=== PATIENT | male | born 1955 | race Caucasian/White ===

== ENCOUNTER 2017-02-28 22:18 | Inpatient (IN) | payer MEDICARE, OTHER ==
[~2017-02-28] VITALS: Ht 172.7 cm; Wt 61.7 kg
--- NOTE | 2017-02-28 22:30 | NUR ---
PT ROMMEL FROM [facility] FOR PACING AND TALKING TO SELF MORE THAN USUAL PT HAS NO COMPLAINTS AT THIS TIME. PATING ASSISTED TO ER BED VIA EMS. PT GOWNED, PLACED ON QA MANAGER. AWAITING ORDERS FROM PROVIDER
[2017-02-28 22:40] LABS: BASOPHILS # (AUTO) 0.1 /CMM (0.0-0.2); BASOPHILS % (AUTO) 0.8 % (0.0-2.0); EOSINOPHILS # (AUTO) 0.2 /CMM (0.0-0.7); EOSINOPHILS % (AUTO) 2.7 % (0.0-6.0); HEMATOCRIT 37 % (39-51); HEMOGLOBIN 12.3 g/dL (13.5-17.5); LYMPHOCYTES # (AUTO) 2.8 /CMM (0.8-4.8); LYMPHOCYTES % (AUTO) 32.5 % (20.0-44.0); MEAN CORPUSCULAR HEMOGLOBIN 30 PG (26.0-33.0); MEAN CORPUSCULAR HGB CONC 33 g/dl (31.0-36.0); MEAN CORPUSCULAR VOLUME 91 fL (80-96); MONOCYTES # (AUTO) 0.6 /CMM (0.1-1.30); MONOCYTES % (AUTO) 6.9 % (2.0-12.0); NEUTROPHILS % (AUTO) 57.1 % (43.0-81.0); PLATELET COUNT (AUTO) 209 /CMM (150-450); RDW COEFFICIENT OF VARIATION 13.8 (11.5-15.0); RED BLOOD CELL COUNT(AUTO) 4.08 MIL/uL (4.5-6.0); WHITE BLOOD COUNT (AUTO) 8.8 K/uL (4.3-11.0)
[2017-02-28 23:05] LABS: ACETAMINOPHEN 0 ug/ml (10-30); ALANINE AMINOTRANSFERASE 23 U/L (12-78); ALBUMIN 3.2 g/dL (3.4-5.0); ALCOHOL, BLOOD < 3 mg/dL (0-0); ALKALINE PHOSPHATASE 74 U/L (46-116); ASPARTATE AMINOTRANSFERASE 15 U/L (15-37); BILIRUBIN,DIRECT 0.1 mg/dL (0.0-0.2); BILIRUBIN,TOTAL 0.2 mg/dL (0.2-1.0); CALCIUM, SERUM 8.5 mg/dL (8.5-10.1); CARBON DIOXIDE 26 mmol/L (21-32); CHLORIDE 102 mmol/L (98-107); GLUCOSE 171 mg/dL (74-106); POTASSIUM 4.1 mmol/L (3.5-5.1); SALICYLATE 3.8 mg/dL (2.8-20.0); SODIUM SERUM 136 mmol/L (136-145); TOTAL PROTEIN, SERUM 6.5 g/dL (6.4-8.2); UREA NITROGEN, BLOOD 17 mg/dL (7-18)
--- NOTE | 2017-03-01 00:01 | NUR ---
PATIENT IS RESTING IN ER BED, NAD NOTED, SKIN WARM AND DRY, WILL CONTINUE TO MONITOR
--- NOTE | 2017-03-01 01:15 | NUR ---
RN NOTE PET TEAM IN ROOM FOR PSYCH EVAL.
--- NOTE | 2017-03-01 02:59 | NUR ---
212.A OLGA LIDIA BED
[2017-03-01] MEDS ORDERED: METF10002 PO (03:58)
[2017-03-01] MEDS ORDERED: TROS20TA3 PO (03:58)
[2017-03-01] MEDS ORDERED: OMEG1CAP55 PO (03:58)
[2017-03-01] MEDS ORDERED: METO25TA6 PO (03:58)
[2017-03-01] MEDS ORDERED: OLAN5TAB3 PO (03:58)
[2017-03-01] MEDS ORDERED: ACET-2030 PO (03:58)
[2017-03-01] MEDS ORDERED: CHOL1CRY2 PO (03:58)
[2017-03-01] MEDS ORDERED: MULT-1119 PO (03:58)
[2017-03-01] MEDS ORDERED: MULT1CAP34 PO (03:58)
[2017-03-01] MEDS ORDERED: FAMO20TA8 PO (03:58)
[2017-03-01] MEDS ORDERED: MAGNESIUM HYDROXIDE 30 ML UDC PO PRN (04:00)
[2017-03-01] MEDS ORDERED: MAG HYDROX/AL HYDROX/SIMETH 30 ML UDC PO PRN (04:00)
[2017-03-01] MEDS ORDERED: ACETAMINOPHEN 325 MG TABLET PO PRN (04:00)
--- NOTE | 2017-03-01 04:34 | NUR ---
GPS/RN NOTE: ADMITTED FROM [facility] ER, INITIALLY CAME FROM [facility], CAME TO THE UNIT AROUND 0315. PATIENT ADMITTED ON 5150 FOR GD. UPON FACE TO FACE PATIENT WAS PACING, TALKING TO SELF, AGITATED, NON-COMPLIANT WITH CARE, UNABLE TO PROVIDE CARE DUE TO MENTAL STATUS. PATIENT AWAKE, ALERT, ORIENTED X3. SKIN ASSESSMENT DONE, SKIN INTACT. RESPIRATION EVEN, BREATHING PATTERN NON-LABORED, NO APPARENT DISTRESS NOTED. BELONGINGS INVENTORIED AND CHECKED FOR CONTRABAND. VALUABLES PUT IN TO SAFE. PATIENT IS UNDER THE PSYCHIATRIC CARE OF DR. DELACRUZ AND UNDER THE MEDICAL CARE OF DR. STANLEY. NEED TO FOLLOW-UP WITH MED RECON. MRSA SCREEN TO BE DONE. BED LOCKED AND PLACED ON LOWEST POSITION. WILL CONTINUE TO MONITOR Q 15 MINS. TO MAINTAIN SAFETY. FAMILY WILL BE NOTIFIED IN AM.
--- NOTE | 2017-03-01 06:18 | NUR ---
GPS/RN NOTE: ASKED PATIENT WHOSE FAMILY MEMBER NEEDS TO BE NOTIFIED ABOUT HIS ADMISSION TO THE UNIT/SOH. PATIENT STATED THAT HE HAS NO ONE. CHECKED MED. RECORD, NOTHING RECORDED OR GIVEN.
--- NOTE | 2017-03-01 06:20 | NUR ---
GPS/RN NOTE: MRSA SCREEN DONE.
[2017-03-01] MEDS ORDERED: CLON0.5T4 PO (06:37)
[2017-03-01] MEDS ORDERED: FINA5TAB11 PO (06:37)
[2017-03-01] MEDS ORDERED: DIVA500T2 PO (06:37)
[2017-03-01] MEDS ORDERED: BENZ0.5T3 PO (06:37)
[2017-03-01] MEDS ORDERED: INSU3INS6 SUBCUT (06:37)
[2017-03-01] MEDS ORDERED: ATOR10TA PO (06:37)
[2017-03-01] MEDS ORDERED: INSU100I14 SQ ×2 (06:37)
--- NOTE | 2017-03-01 06:47 | NUR ---
GPS/RN NOTE: PAGED DR. STANLEY ABOUT MED RECON @ 8348. WAITING CALL BACK.
[2017-03-01 08:00] VITALS: BP 123/73
[2017-03-01] MEDS ORDERED: CHOL100044 PO (08:15)
--- NOTE | 2017-03-01 12:21 | NUR ---
GPS/RN DR PAYTON MADE AWARE VIA [employer] EXCHANGE OF ACCUCHECK WITH WC=686. NEW ORDERS RECEIVED AND CARRIED OUT.
[2017-03-01] MEDS ORDERED: DEXTROSE 50%-WATER 50 ML DISP.SYRIN IV PRN (12:30)
[2017-03-01] MEDS: INSULIN REGULAR, HUMAN 100 UNIT/ML 3 ML VIAL SQ PRN ×2 (12:48→22:43)
[2017-03-01] MEDS: BLOOD SUGAR DIAGNOSTIC 1 EACH STRIP IN SCH ×3 (12:52→22:31)
[2017-03-01] MEDS: OLANZAPINE 5 MG/TAB.RAPDIS PO SCH ×2 (12:54→22:30)
[2017-03-01] MEDS: DIVALPROEX SODIUM 125 MG CAP.SPRINK PO SCH ×2 (12:54→22:30)
[2017-03-01 16:00] VITALS: BP 126/66
[2017-03-01] MEDS ORDERED: Medication Not On Formulary EA (Omega-3 Acid Ethyl Esters (Lovaza) 1 GM) PO SCH (17:00)
[2017-03-01] MEDS: INSULIN ASPART HUMALOG/NOVOLOG 100 UNIT/ML CARTRIDGE SQ SCH (17:51)
[2017-03-01] MEDS: METFORMIN 500 MG TABLET PO SCH (17:53)
[2017-03-01] MEDS: BENZTROPINE MESYLATE (1 MG) 1 MG TABLET PO SCH (17:53)
[2017-03-01] MEDS: METOPROLOL TARTRATE 25 MG TABLET PO SCH (17:54)
[2017-03-01] MEDS: FAMOTIDINE (20 MG) 20 MG TABLET PO SCH (17:55)
[2017-03-01 20:00] VITALS: BP 137/80
--- NOTE | 2017-03-01 21:25 | NUR ---
RN NOTES PATIENT COMPLIANT WITH MEDICATION, ACCUCHECK AND INSULIN ADMINISTRATION. OBEYS SIMPLE COMMAND.
[2017-03-01] MEDS ORDERED: INSULIN DETEMIR 100 UNIT/ML CARTRIDGE SQ SCH (22:00)
[2017-03-01] MEDS: ATORVASTATIN 10 MG TABLET PO SCH (22:31)
[2017-03-02 06:35] LABS: BASOPHILS # (AUTO) 0.1 /CMM (0.0-0.2); BASOPHILS % (AUTO) 0.7 % (0.0-2.0); EOSINOPHILS # (AUTO) 0.2 /CMM (0.0-0.7); HEMATOCRIT 41 % (39-51); HEMOGLOBIN 13.6 g/dL (13.5-17.5); LYMPHOCYTES # (AUTO) 3.2 /CMM (0.8-4.8); LYMPHOCYTES % (AUTO) 35.3 % (20.0-44.0); MEAN CORPUSCULAR HEMOGLOBIN 31 PG (26.0-33.0); MEAN CORPUSCULAR HGB CONC 34 g/dl (31.0-36.0); MEAN CORPUSCULAR VOLUME 91 fL (80-96); MONOCYTES # (AUTO) 0.8 /CMM (0.1-1.30); MONOCYTES % (AUTO) 9.3 % (2.0-12.0); NEUTROPHILS # (AUTO) 4.7 /CMM (1.8-8.9); NEUTROPHILS % (AUTO) 52.7 % (43.0-81.0); PLATELET COUNT (AUTO) 245 /CMM (150-450); RDW COEFFICIENT OF VARIATION 13.9 (11.5-15.0); RED BLOOD CELL COUNT(AUTO) 4.47 MIL/uL (4.5-6.0)
[2017-03-02 06:43] LABS: ALBUMIN 3.3 g/dL (3.4-5.0); BILIRUBIN,TOTAL 0.3 mg/dL (0.2-1.0); CALCIUM, SERUM 8.7 mg/dL (8.5-10.1); CREATININE 0.6 mg/dL (0.6-1.3); POTASSIUM 4.1 mmol/L (3.5-5.1); TOTAL PROTEIN, SERUM 6.8 g/dL (6.4-8.2)
[2017-03-02 06:47] LABS: THYROID STIMULATING HORMONE 0.344 uIU/mL (0.358-3.74)
--- NOTE | 2017-03-02 06:55 | NUR ---
RN NOTES CHECKED BG THIS 614, BG 34 MG/DL, PATIENT IS ALERT AND AWAKE, NO DIAPHORESIS, GIVEN 16 OZ ORANGE JUICE, RECHECKED AFTER 30 MINUTES, BG 130 MG/DL, WILL ENDORSE TO AM SHIFT TO MONITOR BLOOD SUGAR
[2017-03-02 07:52] VITALS: BP 117/59
[2017-03-02] MEDS: BLOOD SUGAR DIAGNOSTIC 1 EACH STRIP IN SCH ×4 (08:57→21:10)
[2017-03-02] MEDS: INSULIN ASPART HUMALOG/NOVOLOG 100 UNIT/ML CARTRIDGE SQ SCH ×2 (08:58→12:00)
[2017-03-02] MEDS: METFORMIN 500 MG TABLET PO SCH (09:00)
[2017-03-02] MEDS: DIVALPROEX SODIUM 125 MG CAP.SPRINK PO SCH ×2 (09:00→21:08)
[2017-03-02] MEDS: MULTIVIT, IRON, MIN NO. 8, FA 1 TAB PO SCH (09:00)
[2017-03-02] MEDS: OLANZAPINE 5 MG/TAB.RAPDIS PO SCH ×2 (09:00→21:09)
[2017-03-02] MEDS: METOPROLOL TARTRATE 25 MG TABLET PO SCH ×2 (09:01→17:03)
[2017-03-02] MEDS: FAMOTIDINE (20 MG) 20 MG TABLET PO SCH ×2 (09:01→17:02)
[2017-03-02] MEDS: FINASTERIDE (5 MG) 5 MG TABLET PO SCH (09:02)
[2017-03-02] MEDS: CHOLECALCIFEROL 1,000 UNIT TABLET (VIT D3) PO SCH (09:02)
[2017-03-02] MEDS: BENZTROPINE MESYLATE (1 MG) 1 MG TABLET PO SCH ×2 (09:02→17:01)
--- NOTE | 2017-03-02 12:11 | NUR ---
RN NOTES PT'S 1200 BS WAS 20. TWO CUPS OF ORANGE JUICE WAS GIVEN MIXED WITH 4 BAGS OF SUGAR. PT REMAINS A/0 X3. DENIES ANY DIZZINESS, SKIN IS WARM AND DRY, STATES THAT HE IS A LITTLE. COLD. WILL STAY WITH PT AND CHECK THE BLOOD SUGAR IN 15MIN.
--- NOTE | 2017-03-02 12:29 | NUR ---
RN NOTES PT'S BLOOD SUGAR WAS RECHECKED AND IS NOW 73 AFTER INTERVENTIONS. PT'S MENTATION REMAINS AT BASELINE. EXHIBITS NO EXCESSIVE SWEATING, NO FAINTING SPELLS, LIGHTHEADEDNESS, AND MINOR SHAKING. WILL CONTINUE TO CLOSELY MONITOR.
[2017-03-02 15:34] VITALS: BP 119/65
--- NOTE | 2017-03-02 15:37 | NUR ---
RN NOTES DR. PAYTON PAGED THROUGH [employer] IN REGARDS TO BLOOD SUGAR MEDICATIONS. AWAITING CALL BACK
--- NOTE | 2017-03-02 15:43 | NUR ---
RN NOTES CALL RECEIVED FROM DR. PAYTON. PER , "DISCONTINUE ALL BLOOD SUGAR MEDICATIONS WITH THE EXCEPTION OF HIS ACCU CHECKS AND MILD SLIDING SCALE". WILL CARRY OUT ORDERS
[2017-03-02] MEDS: INSULIN REGULAR, HUMAN 100 UNIT/ML 3 ML VIAL SQ PRN ×2 (17:07→21:14)
[2017-03-02 19:47] VITALS: BP 123/70
[2017-03-02] MEDS: LORAZEPAM 0.5 MG TABLET PO PRN (21:08)
[2017-03-02] MEDS: ATORVASTATIN 10 MG TABLET PO SCH (21:09)
[2017-03-02] MEDS: INSULIN DETEMIR 100 UNIT/ML CARTRIDGE SQ SCH (21:16)
--- NOTE | 2017-03-03 07:20 | NUR ---
GPS RN NOTE: BS CHECKED 428 MG/DL 10 UNITS INSULIN GIVEN PER ORDER DR PAYTON NOTIFIED WITH NEW ORDERS CHANGE TO MODERATE SLIDING SCALES ,LEVEMIR 5 UNITS SQ ONCE. ORDER PLACED AND CARED OUT WILL CONTINUE MONITORING FOR SAFETY AND BEHAVIOR Q 15 MIN
[2017-03-03] MEDS: BLOOD SUGAR DIAGNOSTIC 1 EACH STRIP IN SCH (07:35)
[2017-03-03] MEDS: INSULIN REGULAR, HUMAN 100 UNIT/ML 3 ML VIAL SQ PRN ×2 (07:37→12:29)
[2017-03-03 08:00] VITALS: BP 120/65
[2017-03-03] MEDS ORDERED: INSULIN DETEMIR 100 UNIT/ML CARTRIDGE SQ STA (08:08)
[2017-03-03] MEDS ORDERED: DEXTROSE 50%-WATER 50 ML DISP.SYRIN IV PRN (08:30)
[2017-03-03] MEDS: FAMOTIDINE (20 MG) 20 MG TABLET PO SCH ×2 (08:31→16:29)
[2017-03-03] MEDS: MULTIVIT, IRON, MIN NO. 8, FA 1 TAB PO SCH (08:31)
[2017-03-03] MEDS: DIVALPROEX SODIUM 125 MG CAP.SPRINK PO SCH ×2 (08:31→21:23)
[2017-03-03] MEDS: OLANZAPINE 5 MG/TAB.RAPDIS PO SCH ×2 (08:31→21:25)
[2017-03-03] MEDS: FINASTERIDE (5 MG) 5 MG TABLET PO SCH (08:31)
[2017-03-03] MEDS: CHOLECALCIFEROL 1,000 UNIT TABLET (VIT D3) PO SCH (08:31)
[2017-03-03] MEDS: BENZTROPINE MESYLATE (1 MG) 1 MG TABLET PO SCH ×2 (08:31→16:29)
[2017-03-03] MEDS: METOPROLOL TARTRATE 25 MG TABLET PO SCH ×2 (08:32→16:30)
[2017-03-03] MEDS: LORAZEPAM 0.5 MG TABLET PO PRN (10:02)
--- NOTE | 2017-03-03 10:04 | NUR ---
GPS RN NOTE: PT IN THE ROOM ANXIOUS PACING RESTLESS ATIVAN 0.5 MG PO PRN GIVEN PER ORDER WILL CONTINUE MONITORING
--- NOTE | 2017-03-03 12:08 | NUR ---
GPS RN NOTE: DR PAYTON NOTIFIED PT BS 435 MG/DL 15 UNITS GIVEN NO NEW ORDERS AT THIS TIME
[2017-03-03] MEDS: BLOOD SUGAR DIAGNOSTIC 1 EACH STRIP VI SCH ×3 (12:28→21:36)
[2017-03-03 15:32] VITALS: BP 108/64
[2017-03-03 19:39] VITALS: BP 106/65
[2017-03-03] MEDS: ATORVASTATIN 10 MG TABLET PO SCH (21:24)
[2017-03-03] MEDS: *INSULIN REGULAR(HUMULIN R)HUM 100 UNIT/ML VIAL SQ PRN (21:34)
[2017-03-03] MEDS: INSULIN DETEMIR 100 UNIT/ML CARTRIDGE SQ SCH (21:35)
[2017-03-04] MEDS: BLOOD SUGAR DIAGNOSTIC 1 EACH STRIP VI SCH ×4 (07:30→21:13)
[2017-03-04 08:16] VITALS: BP 101/59
[2017-03-04] MEDS: DIVALPROEX SODIUM 125 MG CAP.SPRINK PO SCH ×2 (08:46→21:13)
[2017-03-04] MEDS: MULTIVIT, IRON, MIN NO. 8, FA 1 TAB PO SCH (08:47)
[2017-03-04] MEDS: METOPROLOL TARTRATE 25 MG TABLET PO SCH ×2 (08:47→17:18)
[2017-03-04] MEDS: FINASTERIDE (5 MG) 5 MG TABLET PO SCH (08:47)
[2017-03-04] MEDS: FAMOTIDINE (20 MG) 20 MG TABLET PO SCH ×2 (08:47→17:18)
[2017-03-04] MEDS: CHOLECALCIFEROL 1,000 UNIT TABLET (VIT D3) PO SCH (08:48)
[2017-03-04] MEDS: OLANZAPINE 5 MG/TAB.RAPDIS PO SCH ×2 (08:49→21:13)
[2017-03-04] MEDS: NICOTINE PATCH (21MG) 21 MG PATCH.TD24 TD SCH (08:49)
[2017-03-04] MEDS: LORAZEPAM 0.5 MG TABLET PO PRN ×2 (08:49→23:48)
[2017-03-04] MEDS: BENZTROPINE MESYLATE (1 MG) 1 MG TABLET PO SCH ×2 (08:59→17:17)
[2017-03-04] MEDS: INSULIN REGULAR, HUMAN 100 UNIT/ML 3 ML VIAL SQ PRN ×3 (08:59→17:19)
--- NOTE | 2017-03-04 09:19 | NUR ---
RN NOTE:PATIENT AGITATED AND MEDICATED WITH ATIVAN 0.5MG.
--- NOTE | 2017-03-04 09:57 | NUR ---
Initial Discharge Note: Pt resides at [facility] [address] [place] [address] / [phone]. Per Shabbir (greeter guest services) from [facility] (Shabbir confirmed with director of neurology), pt. is able to return there when ready for discharge. Pt has no known contacts, SW will attempt to obtain contact info later on. SW to help form safe and proper discharge plan.
[2017-03-04 15:57] VITALS: BP 139/65
[2017-03-04 20:20] VITALS: BP 105/60
[2017-03-04] MEDS: ATORVASTATIN 10 MG TABLET PO SCH (21:13)
[2017-03-04] MEDS: INSULIN DETEMIR 100 UNIT/ML CARTRIDGE SQ SCH (21:16)
[2017-03-04] MEDS: *INSULIN REGULAR(HUMULIN R)HUM 100 UNIT/ML VIAL SQ PRN (21:16)
[2017-03-05] MEDS: BLOOD SUGAR DIAGNOSTIC 1 EACH STRIP VI SCH ×4 (07:30→21:23)
[2017-03-05 08:13] VITALS: BP 121/71
[2017-03-05] MEDS: BENZTROPINE MESYLATE (1 MG) 1 MG TABLET PO SCH ×2 (08:43→16:13)
[2017-03-05] MEDS: DIVALPROEX SODIUM 125 MG CAP.SPRINK PO SCH ×2 (08:44→21:20)
[2017-03-05] MEDS: METOPROLOL TARTRATE 25 MG TABLET PO SCH ×2 (08:45→16:18)
[2017-03-05] MEDS: FINASTERIDE (5 MG) 5 MG TABLET PO SCH (08:46)
[2017-03-05] MEDS: MULTIVIT, IRON, MIN NO. 8, FA 1 TAB PO SCH (08:46)
[2017-03-05] MEDS: FAMOTIDINE (20 MG) 20 MG TABLET PO SCH ×2 (08:46→16:18)
[2017-03-05] MEDS: CHOLECALCIFEROL 1,000 UNIT TABLET (VIT D3) PO SCH (08:47)
[2017-03-05] MEDS: OLANZAPINE 5 MG/TAB.RAPDIS PO SCH ×2 (08:47→21:20)
[2017-03-05] MEDS: NICOTINE PATCH (21MG) 21 MG PATCH.TD24 TD SCH (09:00)
[2017-03-05] MEDS: LORAZEPAM 0.5 MG TABLET PO PRN ×2 (10:32→21:20)
--- NOTE | 2017-03-05 10:33 | NUR ---
RN NOTE:PATIENT AGITATED AND MEDICATED WITH ATIVAN 0.5MG.
[2017-03-05] MEDS: INSULIN REGULAR, HUMAN 100 UNIT/ML 3 ML VIAL SQ PRN ×2 (13:15→17:30)
[2017-03-05 16:00] VITALS: BP 115/64
--- NOTE | 2017-03-05 18:29 | NUR ---
Checked patient blood sugar level 458mg/dl, given 15units of Humulin R as ordered. Left a voicemail message to Dr. Ma. Awaiting call from .
[2017-03-05 19:59] VITALS: BP 117/60
[2017-03-05] MEDS: ATORVASTATIN 10 MG TABLET PO SCH (21:22)
[2017-03-05] MEDS: INSULIN DETEMIR 100 UNIT/ML CARTRIDGE SQ SCH (21:23)
--- NOTE | 2017-03-05 21:53 | NUR ---
RN NOTES PT BS= 77 MG/DL LEVEMIR 10 UNITS HELD. ORANGE JUICE GIVEN. NO S/S OF HYPOGLYCEMIA. WILL CONTINUE TO MONITOR.
[2017-03-06] MEDS: BLOOD SUGAR DIAGNOSTIC 1 EACH STRIP VI SCH (07:38)
[2017-03-06] MEDS: INSULIN REGULAR, HUMAN 100 UNIT/ML 3 ML VIAL SQ PRN ×3 (07:40→12:33)
--- NOTE | 2017-03-06 07:45 | NUR ---
GPS/RN BS 505, RECHECKED 556, TIFFANY COPELAND NOTIFIED, ADMINISTERED 15 UNITS REGULAR INSULIN ORDERED. NO NEW ORDERS AT THIS TIME. PATIENT IS ASYMPTOMATIC, WILL CONTINUE TO MONITOR.
[2017-03-06 08:51] VITALS: BP 112/67
--- NOTE | 2017-03-06 09:10 | NUR ---
GPS/RN BS 559, RECHECKED, BS 555, CYBER SOFTWARE ENGINEER DINORAH NOTIFIED, NEW ORDER TO ADMINISTER 20 UNITS REGULAR INSULIN, ADMINISTERED ORDERED. NEW ORDER BMP, LACTIC ACID, INPUTTED IN SYSTEM, PATIENT IS IN STABLE CONDITION AND ASYMPTOMATIC, WILL CONTINUE TO MONITOR.
[2017-03-06] MEDS: FAMOTIDINE (20 MG) 20 MG TABLET PO SCH ×2 (09:12→16:29)
[2017-03-06] MEDS: CHOLECALCIFEROL 1,000 UNIT TABLET (VIT D3) PO SCH (09:12)
[2017-03-06] MEDS: BENZTROPINE MESYLATE (1 MG) 1 MG TABLET PO SCH ×2 (09:12→16:28)
[2017-03-06] MEDS: FINASTERIDE (5 MG) 5 MG TABLET PO SCH (09:12)
[2017-03-06] MEDS: OLANZAPINE 5 MG/TAB.RAPDIS PO SCH ×2 (09:12→21:40)
[2017-03-06] MEDS: DIVALPROEX SODIUM 125 MG CAP.SPRINK PO SCH ×2 (09:12→21:40)
[2017-03-06] MEDS: METOPROLOL TARTRATE 25 MG TABLET PO SCH ×2 (09:13→16:29)
[2017-03-06] MEDS: MULTIVIT, IRON, MIN NO. 8, FA 1 TAB PO SCH (09:16)
[2017-03-06] MEDS: NICOTINE PATCH (21MG) 21 MG PATCH.TD24 TD SCH (09:16)
--- NOTE | 2017-03-06 10:20 | NUR ---
GPS/RN BS RECHECKED 440, ANCILLARY SERVICES MANAGER THERAPY DINORAH NOTIFIED, NO NEW ORDERS AT THIS TIME. PATIENT IS ASYMPTOMATIC, WILL CONTINUE TO MONITOR.
--- NOTE | 2017-03-06 10:30 | NUR ---
GPS/RN TIFFANY COPELAND NOTIFIED OF LACTIC ACID 2.1 GLUCOSE 453, NO NEW ORDERS.
[2017-03-06 10:33] LABS: CARBON DIOXIDE 27 mmol/L (21-32); CHLORIDE 101 mmol/L (98-107); CREATININE 1.2 mg/dL (0.6-1.3); POTASSIUM 4.7 mmol/L (3.5-5.1); SODIUM SERUM 136 mmol/L (136-145); UREA NITROGEN, BLOOD 29 mg/dL (7-18)
[2017-03-06 10:36] LABS: GLUCOSE 453 mg/dL (74-106)
[2017-03-06 11:57] LABS: BILIRUBIN,DIRECT 0.1 mg/dL (0.0-0.2); BILIRUBIN,TOTAL 0.4 mg/dL (0.2-1.0)
[2017-03-06] MEDS ORDERED: DEXTROSE 50%-WATER 50 ML DISP.SYRIN IV PRN (12:00)
[2017-03-06] MEDS: BLOOD SUGAR DIAGNOSTIC 1 EACH STRIP IN SCH ×3 (12:15→21:40)
--- NOTE | 2017-03-06 12:30 | NUR ---
GPS/RN TIFFANY COPELAND NOTIFIED OF LACTIC ACID 2.6 AND BS 267. ADMINISTERED 12 UNITS OF REGULAR INSULIN PER SLIDING SCALE, NO NEW ORDERS AT THIS TIME. WILL CONTINUE TO MONITOR.
[2017-03-06 16:24] VITALS: BP 119/78
--- NOTE | 2017-03-06 17:12 | NUR ---
GPS/RN BS 27, GAVE ORANGE JUICE, WILL RECHECK BS VALUES, TIFFANY COPELAND NOTIFIED OF RESULTS, AWAITING CALL BACK.
--- NOTE | 2017-03-06 17:31 | NUR ---
GPS/RN TIFFANY AMEZQUITA IS AWARE OF BS OF 27 AND THAT OJ WAS GIVEN TO PATIENT, NO NEW ORDERS AT THIS TIME.
--- NOTE | 2017-03-06 18:02 | NUR ---
GPS/RN BS VALUES RECHECKED, BS 170, EMBALMER APPRENTICE BIA NOTIFIED, PATIENT IS ALERT, STABLE CONDITION, AWAITING CALL BACK. WILL CONTINUE TO MONITOR.
--- NOTE | 2017-03-06 19:00 | NUR ---
GPS/RN TIFFANY AMEZQUITA IS AWARE OF BS OF 170, NO NEW ORDERS AT THIS TIME.
[2017-03-06] MEDS: ATORVASTATIN 10 MG TABLET PO SCH (21:40)
--- NOTE | 2017-03-06 21:40 | NUR ---
GPS/RN PT'S BS 414 MG/DL, PT IS ASYMPTOMATIC, ADMINISTERED 10 UNITS REGULAR INSULIN ORDERED. ORDERED GLUCOSE RANDOM STAT. WILL CONTINUE TO MONITOR.
[2017-03-06] MEDS: *INSULIN REGULAR(HUMULIN R)HUM 100 UNIT/ML VIAL SQ PRN (21:41)
[2017-03-06] MEDS: TEMAZEPAM 7.5 MG CAPSULE PO PRN (21:42)
--- NOTE | 2017-03-07 05:40 | NUR ---
GPS-RN PT'S BLOOD SUGAR 403 MG/DL. ORDERED GLUCOSE RANDOM STAT. PT IS ASYMPTOMATIC. WILL CONTINUE TO MONITOR.
[2017-03-07] MEDS: INSULIN REGULAR, HUMAN 100 UNIT/ML 3 ML VIAL SQ PRN ×2 (06:25→12:47)
--- NOTE | 2017-03-07 06:40 | NUR ---
PT'S GLUCOSE RANDOM RESULT 428. PT IS ASYMPTOMATIC. INSULIN 20 UNITS GIVEN ORDERED. WILL CONTINUE TO MONITOR.
[2017-03-07] MEDS: BLOOD SUGAR DIAGNOSTIC 1 EACH STRIP IN SCH ×4 (08:08→21:41)
[2017-03-07] MEDS: INSULIN DETEMIR 100 UNIT/ML CARTRIDGE SQ SCH (08:25)
[2017-03-07] MEDS: METOPROLOL TARTRATE 25 MG TABLET PO SCH ×2 (09:00→16:14)
[2017-03-07] MEDS: NICOTINE PATCH (21MG) 21 MG PATCH.TD24 TD SCH (09:00)
[2017-03-07] MEDS: FAMOTIDINE (20 MG) 20 MG TABLET PO SCH ×2 (09:03→16:14)
[2017-03-07] MEDS: FINASTERIDE (5 MG) 5 MG TABLET PO SCH (09:03)
[2017-03-07] MEDS: DIVALPROEX SODIUM 125 MG CAP.SPRINK PO SCH ×2 (09:03→21:40)
[2017-03-07] MEDS: CHOLECALCIFEROL 1,000 UNIT TABLET (VIT D3) PO SCH (09:03)
[2017-03-07] MEDS: MULTIVIT, IRON, MIN NO. 8, FA 1 TAB PO SCH (09:03)
[2017-03-07] MEDS: BENZTROPINE MESYLATE (1 MG) 1 MG TABLET PO SCH ×2 (09:03→16:14)
[2017-03-07] MEDS: OLANZAPINE 5 MG/TAB.RAPDIS PO SCH ×2 (09:04→21:41)
[2017-03-07 09:47] VITALS: BP 101/59
[2017-03-07 16:00] VITALS: BP 102/57
[2017-03-07 20:00] VITALS: BP 102/63
[2017-03-07] MEDS: ATORVASTATIN 10 MG TABLET PO SCH (21:41)
[2017-03-07] MEDS: TEMAZEPAM 7.5 MG CAPSULE PO PRN (21:41)
[2017-03-08 08:00] VITALS: BP 115/68
[2017-03-08] MEDS: BLOOD SUGAR DIAGNOSTIC 1 EACH STRIP IN SCH ×4 (08:12→21:41)
[2017-03-08] MEDS: INSULIN DETEMIR 100 UNIT/ML CARTRIDGE SQ SCH (08:33)
[2017-03-08] MEDS: INSULIN REGULAR, HUMAN 100 UNIT/ML 3 ML VIAL SQ PRN ×2 (08:36→12:20)
[2017-03-08] MEDS: CHOLECALCIFEROL 1,000 UNIT TABLET (VIT D3) PO SCH (08:37)
[2017-03-08] MEDS: NICOTINE PATCH (21MG) 21 MG PATCH.TD24 TD SCH (08:37)
[2017-03-08] MEDS: BENZTROPINE MESYLATE (1 MG) 1 MG TABLET PO SCH ×2 (08:37→18:18)
[2017-03-08] MEDS: MULTIVIT, IRON, MIN NO. 8, FA 1 TAB PO SCH (08:37)
[2017-03-08] MEDS: FINASTERIDE (5 MG) 5 MG TABLET PO SCH (08:37)
[2017-03-08] MEDS: DIVALPROEX SODIUM 125 MG CAP.SPRINK PO SCH ×2 (08:37→21:37)
[2017-03-08] MEDS: OLANZAPINE 5 MG/TAB.RAPDIS PO SCH ×2 (08:38→21:37)
[2017-03-08] MEDS: METOPROLOL TARTRATE 25 MG TABLET PO SCH ×2 (08:39→18:19)
[2017-03-08] MEDS: FAMOTIDINE (20 MG) 20 MG TABLET PO SCH ×2 (08:40→18:18)
[2017-03-08 16:00] VITALS: BP 114/71
--- NOTE | 2017-03-08 16:45 | NUR ---
GPS/RN ACCUCHECK WITH BS= 18. ORANGE JUICE WITH 3 SUGARS GIVEN PT IS AMBULATORY AND ASYMPTOMATIC
[2017-03-08] MEDS ORDERED: DIVALPROEX SODIUM 250 MG TABLET.DR PO SCH (17:00)
[2017-03-08 20:00] VITALS: BP 119/60
[2017-03-08] MEDS: ATORVASTATIN 10 MG TABLET PO SCH (21:37)
[2017-03-08] MEDS: LORAZEPAM 0.5 MG TABLET PO PRN (21:37)
[2017-03-08] MEDS: *INSULIN REGULAR(HUMULIN R)HUM 100 UNIT/ML VIAL SQ PRN (21:43)
[2017-03-09] MEDS ORDERED: INSULIN DETEMIR 100 UNIT/ML CARTRIDGE SQ SCH (07:00)
[2017-03-09 07:54] LABS: BASOPHILS % (AUTO) 0.2 % (0.0-2.0); EOSINOPHILS # (AUTO) 0.2 /CMM (0.0-0.7); EOSINOPHILS % (AUTO) 2.7 % (0.0-6.0); HEMATOCRIT 40 % (39-51); HEMOGLOBIN 13.3 g/dL (13.5-17.5); LYMPHOCYTES # (AUTO) 1.9 /CMM (0.8-4.8); LYMPHOCYTES % (AUTO) 22.9 % (20.0-44.0); MEAN CORPUSCULAR HEMOGLOBIN 31 PG (26.0-33.0); MEAN CORPUSCULAR HGB CONC 34 g/dl (31.0-36.0); MEAN CORPUSCULAR VOLUME 91 fL (80-96); MONOCYTES # (AUTO) 0.5 /CMM (0.1-1.30); MONOCYTES % (AUTO) 6.2 % (2.0-12.0); NEUTROPHILS # (AUTO) 5.6 /CMM (1.8-8.9); RDW COEFFICIENT OF VARIATION 14.3 (11.5-15.0); RED BLOOD CELL COUNT(AUTO) 4.33 MIL/uL (4.5-6.0); WHITE BLOOD COUNT (AUTO) 8.3 K/uL (4.3-11.0)
[2017-03-09 08:00] VITALS: BP 104/54
[2017-03-09 08:19] LABS: ALBUMIN 3.2 g/dL (3.4-5.0); BILIRUBIN,TOTAL 0.4 mg/dL (0.2-1.0); CALCIUM, SERUM 8.7 mg/dL (8.5-10.1); CREATININE 0.8 mg/dL (0.6-1.3); MAGNESIUM 2.1 mg/dL (1.8-2.4); POTASSIUM 4.6 mmol/L (3.5-5.1); TOTAL PROTEIN, SERUM 6.8 g/dL (6.4-8.2)
[2017-03-09] MEDS: METOPROLOL TARTRATE 25 MG TABLET PO SCH ×2 (09:00→16:46)
[2017-03-09] MEDS: INSULIN REGULAR, HUMAN 100 UNIT/ML 3 ML VIAL SQ PRN ×2 (09:04→12:40)
[2017-03-09] MEDS: BLOOD SUGAR DIAGNOSTIC 1 EACH STRIP IN SCH ×4 (09:07→21:19)
[2017-03-09] MEDS: MULTIVIT, IRON, MIN NO. 8, FA 1 TAB PO SCH (09:13)
[2017-03-09] MEDS: CHOLECALCIFEROL 1,000 UNIT TABLET (VIT D3) PO SCH (09:13)
[2017-03-09] MEDS: FAMOTIDINE (20 MG) 20 MG TABLET PO SCH ×2 (09:13→16:50)
[2017-03-09] MEDS: BENZTROPINE MESYLATE (1 MG) 1 MG TABLET PO SCH ×2 (09:13→16:50)
[2017-03-09] MEDS: FINASTERIDE (5 MG) 5 MG TABLET PO SCH (09:13)
[2017-03-09] MEDS: DIVALPROEX SODIUM 125 MG CAP.SPRINK PO SCH ×2 (09:14→21:18)
[2017-03-09] MEDS: NICOTINE PATCH (21MG) 21 MG PATCH.TD24 TD SCH (09:14)
[2017-03-09] MEDS: OLANZAPINE 5 MG/TAB.RAPDIS PO SCH ×2 (09:14→21:19)
[2017-03-09 09:32] LABS: PLATELET COUNT (AUTO) 217 /CMM (150-450)
[2017-03-09] MEDS ORDERED: OLANZAPINE 5 MG/TAB.RAPDIS PO ONE (13:30)
[2017-03-09 16:00] VITALS: BP 109/60
[2017-03-09] MEDS: DIVALPROEX SODIUM 125 MG TABLET.DR PO SCH (16:51)
--- NOTE | 2017-03-09 17:30 | NUR ---
GPS/RN ACCUCHECK WITH BS= 20. ORANGE JUICE WITH 4 SUGARS GIVEN PT IS AMBULATORY AND ASYMPTOMATIC
[2017-03-09] MEDS: ATORVASTATIN 10 MG TABLET PO SCH (21:19)
[2017-03-09] MEDS: *INSULIN REGULAR(HUMULIN R)HUM 100 UNIT/ML VIAL SQ PRN (22:01)
[2017-03-09] MEDS: TEMAZEPAM 7.5 MG CAPSULE PO PRN (22:42)
[2017-03-09 22:53] VITALS: BP 120/69
[2017-03-10 08:00] VITALS: BP 112/73
[2017-03-10] MEDS: BLOOD SUGAR DIAGNOSTIC 1 EACH STRIP IN SCH ×4 (08:13→21:37)
[2017-03-10] MEDS: CHOLECALCIFEROL 1,000 UNIT TABLET (VIT D3) PO SCH (08:13)
[2017-03-10] MEDS: MULTIVIT, IRON, MIN NO. 8, FA 1 TAB PO SCH (08:13)
[2017-03-10] MEDS: BENZTROPINE MESYLATE (1 MG) 1 MG TABLET PO SCH ×2 (08:13→16:11)
[2017-03-10] MEDS: FINASTERIDE (5 MG) 5 MG TABLET PO SCH (08:13)
[2017-03-10] MEDS: OLANZAPINE 5 MG/TAB.RAPDIS PO SCH ×3 (08:13→21:39)
[2017-03-10] MEDS: DIVALPROEX SODIUM 125 MG CAP.SPRINK PO SCH ×2 (08:13→21:37)
[2017-03-10] MEDS: FAMOTIDINE (20 MG) 20 MG TABLET PO SCH ×2 (08:13→16:12)
[2017-03-10] MEDS: NICOTINE PATCH (21MG) 21 MG PATCH.TD24 TD SCH (08:13)
[2017-03-10] MEDS: METOPROLOL TARTRATE 25 MG TABLET PO SCH ×2 (08:14→16:11)
[2017-03-10] MEDS: INSULIN REGULAR, HUMAN 100 UNIT/ML 3 ML VIAL SQ PRN ×2 (08:55→11:44)
--- NOTE | 2017-03-10 15:22 | NUR ---
Patient was accepted to [facility] [address] [place] [address] ( ). shearing shed worker will follow-up.
[2017-03-10] MEDS: DIVALPROEX SODIUM 125 MG TABLET.DR PO SCH (16:16)
[2017-03-10 16:17] VITALS: BP 135/70
[2017-03-10 19:59] VITALS: BP 112/61
[2017-03-10] MEDS: ATORVASTATIN 10 MG TABLET PO SCH (21:38)
[2017-03-10] MEDS: *INSULIN REGULAR(HUMULIN R)HUM 100 UNIT/ML VIAL SQ PRN (21:43)
[2017-03-10] MEDS: LORAZEPAM 0.5 MG TABLET PO PRN (22:54)
[2017-03-11] MEDS: TEMAZEPAM 7.5 MG CAPSULE PO PRN (01:49)
[2017-03-11] MEDS: BLOOD SUGAR DIAGNOSTIC 1 EACH STRIP IN SCH ×4 (06:53→21:10)
[2017-03-11] MEDS: INSULIN REGULAR, HUMAN 100 UNIT/ML 3 ML VIAL SQ PRN ×3 (06:55→17:35)
[2017-03-11 08:00] VITALS: BP 100/60
[2017-03-11] MEDS: NICOTINE PATCH (21MG) 21 MG PATCH.TD24 TD SCH (08:51)
[2017-03-11] MEDS: CHOLECALCIFEROL 1,000 UNIT TABLET (VIT D3) PO SCH (08:51)
[2017-03-11] MEDS: DIVALPROEX SODIUM 125 MG CAP.SPRINK PO SCH ×2 (08:52→21:08)
[2017-03-11] MEDS: FINASTERIDE (5 MG) 5 MG TABLET PO SCH (08:52)
[2017-03-11] MEDS: MULTIVIT, IRON, MIN NO. 8, FA 1 TAB PO SCH (08:52)
[2017-03-11] MEDS: FAMOTIDINE (20 MG) 20 MG TABLET PO SCH ×2 (08:52→17:33)
[2017-03-11] MEDS: BENZTROPINE MESYLATE (1 MG) 1 MG TABLET PO SCH ×2 (08:53→17:32)
[2017-03-11] MEDS: OLANZAPINE 5 MG/TAB.RAPDIS PO SCH ×3 (08:53→21:10)
[2017-03-11] MEDS: METOPROLOL TARTRATE 25 MG TABLET PO SCH ×2 (08:53→17:33)
[2017-03-11 15:35] VITALS: BP 124/59
[2017-03-11] MEDS: DIVALPROEX SODIUM 125 MG TABLET.DR PO SCH (17:32)
[2017-03-11 19:54] VITALS: BP 103/62
[2017-03-11] MEDS: ATORVASTATIN 10 MG TABLET PO SCH (21:09)
[2017-03-12] MEDS: INSULIN REGULAR, HUMAN 100 UNIT/ML 3 ML VIAL SQ PRN ×2 (06:45→12:42)
[2017-03-12] MEDS: BLOOD SUGAR DIAGNOSTIC 1 EACH STRIP IN SCH ×4 (06:46→21:43)
[2017-03-12 08:00] VITALS: BP 109/66
[2017-03-12] MEDS: BENZTROPINE MESYLATE (1 MG) 1 MG TABLET PO SCH ×2 (08:57→17:19)
[2017-03-12] MEDS: OLANZAPINE 5 MG/TAB.RAPDIS PO SCH ×3 (08:57→21:53)
[2017-03-12] MEDS: DIVALPROEX SODIUM 125 MG CAP.SPRINK PO SCH ×2 (08:57→21:56)
[2017-03-12] MEDS: CHOLECALCIFEROL 1,000 UNIT TABLET (VIT D3) PO SCH (08:58)
[2017-03-12] MEDS: NICOTINE PATCH (21MG) 21 MG PATCH.TD24 TD SCH (08:58)
[2017-03-12] MEDS: MULTIVIT, IRON, MIN NO. 8, FA 1 TAB PO SCH (08:58)
[2017-03-12] MEDS: FINASTERIDE (5 MG) 5 MG TABLET PO SCH (08:58)
[2017-03-12] MEDS: FAMOTIDINE (20 MG) 20 MG TABLET PO SCH ×2 (08:58→17:19)
[2017-03-12] MEDS: METOPROLOL TARTRATE 25 MG TABLET PO SCH ×2 (08:58→17:19)
--- NOTE | 2017-03-12 09:00 | NUR ---
RN-CO: DR DELACRUZ GAVE AN ORDER TO DISCHARGE PATIENT TO SNF AND DISCONTINUE HOLD UPON DISCHARGE, NOTED. PATIENT DOES NOT HAVE ANY FAMILY TO NOTIFY.
[2017-03-12 09:58] LABS: CARBON DIOXIDE 24 mmol/L (21-32); CHLORIDE 103 mmol/L (98-107); CREATININE 1.1 mg/dL (0.6-1.3); POTASSIUM 4.2 mmol/L (3.5-5.1); SODIUM SERUM 139 mmol/L (136-145)
[2017-03-12 10:10] LABS: CALCIUM, SERUM 9.3 mg/dL (8.5-10.1); UREA NITROGEN, BLOOD 27 mg/dL (7-18)
[2017-03-12 10:17] LABS: GLUCOSE 372 mg/dL (74-106)
--- NOTE | 2017-03-12 10:30 | NUR ---
RN-CO: KOJO SPARROW NP MEDICALLY CLEARED THE PATIENT FOR DISCHARGE.
--- NOTE | 2017-03-12 11:11 | NUR ---
Discharge Note: Patient will be discharged to [address] [address] ( ). Via med response. Patient does not have any family to notify. Patient's mood and affect are appropriate. Patient denies suicidal and homicidal ideations. Patient will follow-up with psychiatrist Dr. Abelardo Siddiqi ([phone]) at the facility on 03/18/17 at 1:00PM in which he will discuss his substance abuse hx. For smoking cessation patient was referred for a phone meeting scheduled 03/16/17 at 9:30am ([phone]) PIN: [id number]# with [facility] [place]. Facilitated info to IDT team who are in agreement with discharge arrangement. The multidisciplinary exitcare form was done, printed, signed, and given to the patient. Addendum: 03/12/17 at 1250 by MAYA LOU Patient was not medically cleared to for discharge to SNf and was going to be discharged and transferred to the medical floor.
--- NOTE | 2017-03-12 11:12 | NUR ---
RN-CO: PT IS AFEBRILE WITH A TEMP OF 98.0. LACTIC ACID OF 3.2 WAS REPORTED TO KOJO SPARROW NP. AWAITING TO CALL BACK. PATIENT REFUSED A FOLLOW UP LABS. PT IS ASYMPTOMATIC.
--- NOTE | 2017-03-12 12:39 | NUR ---
RN-CO: KOJO ANDREWS WAS INFORMED ABOUT THE LACTIC ACID RESULT OF 3.2 AND ORDERED 2 LITERS OF NORMAL SALINE BOLUS AND AFTER INFUSION ,TAKE LACTIC ACID TEST STAT. NOTED AND CARRIED OUT. DR DELACRUZ WAS NOTIFIED REGARDING THE SITUATION AND PSYCHIATRIST ORDERED TO CHANGE DISCHARGE DATE TOMORROW AND CONTINUE HOLD, NOTED. WE WILL CONTINUE TO MONITOR THE PATIENT.
--- NOTE | 2017-03-12 12:40 | NUR ---
KOJO ALLEN CALLS BACK AND ORDERS FOR 2L NS BOLUS AND A REPEAT LACTIC AFTER THE BOLUS HE CANNOT BE DISCHARGED WITH THE REPORTED LACTIC AT 3.2. [facility] I SAT DOWN WITH THE PATIENT AND EXPLAINED TO HIM THAT HE NEEDS IV FLUIDS, HE IS EASILY AGITATED AND BECOMES SEVERELY ANXIOUS WHEN AT THE THOUGH OF BLOOD DRAWS. REFUSING FOR THE IV PLACEMENT. AT THIS TIME HE IS PACING ANXIOUS AND AGITATED, I WILL ALLOW FOR HIM TO DIFFUSE GIVE PRN ATIVAN AND THEN TRY AGAIN TO SEE IF HE WILL LET ME GIVE THE BOLUS AND REPEAT LACTIC DR. DELACRUZ NOTIFIED OF THE SITUATION HE ORDERS TO HOLD THE DC UNTIL CLEARED BY MEDICAL
[2017-03-12] MEDS: LORAZEPAM 0.5 MG TABLET PO PRN ×2 (12:47→23:46)
--- NOTE | 2017-03-12 12:54 | NUR ---
RN-CO: DASHA CHEN MADE AWARE OF KOJO SPARROW'S (CRUSHER SUPERVISOR) AND DR DELACRUZ'S ORDER.
[2017-03-12] MEDS ORDERED: IV NS 0.9% 1,000 ML IV PRN (13:00)
[2017-03-12] MEDS ORDERED: IV NS 0.9% 1,000 ML BAG IV SCH (13:15)
--- NOTE | 2017-03-12 14:04 | NUR ---
SAT DOWN AGAIN AND SPOKE WITH THE PATIENT REGARDING THE LACTIC ACID AND THE NEED FOR THE IV FLUIDS. DESPITE THE ATIVAN, PT REFUSES AND THIS TIME WALKS OUT OF THE ROOM AND PACES THE HALLWAYS, HE IS COMPLIANT WITH MEDICATIONS, HOWEVER BECAUSE HE IS UNDER THE IMPRESSION THAT HE WAS ALREADY DISCHARGED HE HAS BEEN REFUSING LABS AND NEEDLE STICKS AFTER THIS MORNINGS LAB DRAWS. I EXPLAINED TO HIM THAT THE LABS ARE TOO ABNORMAL FOR HIM TO BE DISCHARGED FROM THE HOSPITAL, THIS IS WHEN HE WALKS OUT AND PACES THE HALLWAY.
--- NOTE | 2017-03-12 14:13 | NUR ---
DR. DELACRUZ INFORMED OF SITUATION ORDERS TO HOLD DC.
--- NOTE | 2017-03-12 14:52 | NUR ---
KOJO QUINTANILLA INFORMED OF PT REFUSING 2 LITER BOLUS AND LAB DRAWS. NOTIFIED HIM THAT I AM CURRENTLY GIVING HIM MULTIPLE PITCHERS OF WATER TO DRINK. HE ORDERS TO TRY AND GET A LACTIC RIGHT NOW AND HE WILL RESTART THE LONG ACTING INSULIN. ORDERS PLACED.
[2017-03-12 16:00] VITALS: BP 111/68
--- NOTE | 2017-03-12 16:00 | NUR ---
RN-CO: Patient was seen and examined by Adrien Blackmon NP with orders placed.
[2017-03-12] MEDS: DIVALPROEX SODIUM 125 MG TABLET.DR PO SCH (17:19)
--- NOTE | 2017-03-12 17:45 | NUR ---
PT BLOOD GLUCOSE CHECKED TWICE, IT IS 43 AND 39, PT IS ALERT ORIENTED, AMBULATING AROUND THE UNIT. I RUSHED HIS DINNER TO HIM AND GAVE HIM JUICE TO DRINK, PT WAS ABLE TO DRINK EASILY. I NOTIFIED KOJO QUINTANILLA, ABOUT THE FINDINGS, HE SAID TO GIVE THE PT HIS FOOD AND SOME JUICE AND TO KEEP THE CURRENT SLIDING SCALE. NO NEW ORDERS.
[2017-03-12 20:00] VITALS: BP 145/67
[2017-03-12 20:21] LABS: APPEARANCE,URINE CLEAR (CLEAR); BILIRUBIN,URINE NEGATIVE (NEGATIVE); BLOOD, URINE TRACE Ery/uL (NEGATIVE); COLOR,URINE YELLOW (YELLOW); KETONES,URINE NEGATIVE (NEGATIVE); LEUKOCYTE ESTERASE ,URINE 2+ (NEGATIVE); NITRITE, URINE NEGATIVE (NEGATIVE); PROTEIN,URINE NEGATIVE (NEGATIVE); UGLUCOSE TRACE mg/dL (NEGATIVE); UROBILINOGEN,URINE 0.2 EU/dL (0.2)
[2017-03-12 20:34] LABS: RBC,URINE 0-2 /HPF (0-2)
[2017-03-12 20:35] LABS: BACTERIA,URINE Few /HPF (None Seen); SQUAMOUS EPITHELIAL CELL,UR Rare /HPF (None Seen); YEAST,URINE Few /HPF (None Seen)
[2017-03-12] MEDS: *INSULIN REGULAR(HUMULIN R)HUM 100 UNIT/ML VIAL SQ PRN (21:40)
[2017-03-12] MEDS: INSULIN DETEMIR 100 UNIT/ML CARTRIDGE SQ SCH (21:44)
[2017-03-12] MEDS: ATORVASTATIN 10 MG TABLET PO SCH (21:55)
--- NOTE | 2017-03-12 22:01 | NUR ---
GPS/RN ACCU CHECK BLOOD SUGAR AT 9613=306, RECHECKED, 459, PATIENT WAS ASYMPTOMATIC, COVERED WITH INSULIN PER SLIDING SCALE AND LEVEMIR 12 UNITS ORDERED. CALLED [facility] FOR FURTHER INSULIN ORDERD. LEFT MESSAGE.
--- NOTE | 2017-03-12 22:05 | NUR ---
GPS/RN COREY HUERTA NP, CALLED BACK, NO FURTHER ORDERS RECEIVED. WILL MONITOR PATIENT.
--- NOTE | 2017-03-12 23:47 | NUR ---
GPS/RN ANXIETY NOTED, ATIVAN 0.5 MG PO WAS GIVEN ORDERED. WILL MONITOR.
--- NOTE | 2017-03-12 23:48 | NUR ---
GPS/RN RECHECKED BLOOD SUGAR = 248. WILL CONTINUE TO MONITOR.
--- NOTE | 2017-03-13 06:03 | NUR ---
GPS/RN STILL SLEEPING, AROUSABLE, APPEAR COMFORTABLE, NO SIGNS OF DISTRESS NOTED. ALL NEEDS ATTENDED AT THIS TIME. WILL CONTINUE TO MONITOR.
[2017-03-13 07:07] LABS: BASOPHILS # (AUTO) 0.1 /CMM (0.0-0.2); BASOPHILS % (AUTO) 0.6 % (0.0-2.0); HEMATOCRIT 38 % (39-51); HEMOGLOBIN 12.8 g/dL (13.5-17.5); LYMPHOCYTES # (AUTO) 2.4 /CMM (0.8-4.8); LYMPHOCYTES % (AUTO) 27.4 % (20.0-44.0); MEAN CORPUSCULAR HEMOGLOBIN 31 PG (26.0-33.0); MEAN CORPUSCULAR HGB CONC 34 g/dl (31.0-36.0); MEAN CORPUSCULAR VOLUME 91 fL (80-96); MONOCYTES # (AUTO) 0.6 /CMM (0.1-1.30); NEUTROPHILS # (AUTO) 5.7 /CMM (1.8-8.9); PLATELET COUNT (AUTO) 231 /CMM (150-450); RED BLOOD CELL COUNT(AUTO) 4.17 MIL/uL (4.5-6.0); WHITE BLOOD COUNT (AUTO) 8.8 K/uL (4.3-11.0)
[2017-03-13 07:18] LABS: BILIRUBIN,DIRECT 0.1 mg/dL (0.0-0.2); BILIRUBIN,TOTAL 0.3 mg/dL (0.2-1.0); CALCIUM, SERUM 9.1 mg/dL (8.5-10.1); CREATININE 0.9 mg/dL (0.6-1.3)
[2017-03-13 08:00] VITALS: BP 124/62
[2017-03-13] MEDS: BLOOD SUGAR DIAGNOSTIC 1 EACH STRIP IN SCH ×4 (08:06→21:05)
[2017-03-13] MEDS: BENZTROPINE MESYLATE (1 MG) 1 MG TABLET PO SCH ×2 (08:07→16:02)
[2017-03-13] MEDS: OLANZAPINE 5 MG/TAB.RAPDIS PO SCH ×3 (08:07→22:49)
[2017-03-13] MEDS: DIVALPROEX SODIUM 125 MG CAP.SPRINK PO SCH ×2 (08:08→20:51)
[2017-03-13] MEDS: METOPROLOL TARTRATE 25 MG TABLET PO SCH ×2 (08:10→16:04)
[2017-03-13] MEDS: FINASTERIDE (5 MG) 5 MG TABLET PO SCH (08:10)
[2017-03-13] MEDS: FAMOTIDINE (20 MG) 20 MG TABLET PO SCH ×2 (08:10→16:03)
[2017-03-13] MEDS: NICOTINE PATCH (21MG) 21 MG PATCH.TD24 TD SCH (08:11)
[2017-03-13] MEDS: CHOLECALCIFEROL 1,000 UNIT TABLET (VIT D3) PO SCH (08:11)
[2017-03-13] MEDS: MULTIVIT, IRON, MIN NO. 8, FA 1 TAB PO SCH (08:11)
[2017-03-13] MEDS: INSULIN REGULAR, HUMAN 100 UNIT/ML 3 ML VIAL SQ PRN ×3 (08:16→16:49)
--- NOTE | 2017-03-13 08:16 | NUR ---
[id number]: BLOOD SUGAR IS 177 MG/DL AND GAVE 4 UNITS OF REGULAR INSULIN
[2017-03-13] MEDS: SULFAMETH/TRIMETH 800/160 MG 1 UDTAB TABLET PO SCH ×2 (09:32→20:50)
--- NOTE | 2017-03-13 12:02 | NUR ---
[id number]: BLOOD SUGAR IS 395 MG/DL AND GAVE 20 UNITS OF REGULAR INSULIN
[2017-03-13 15:53] VITALS: BP 136/74
[2017-03-13] MEDS: DIVALPROEX SODIUM 125 MG TABLET.DR PO SCH (16:03)
--- NOTE | 2017-03-13 16:49 | NUR ---
[id number]: BLOOD SUGAR IS 257 MG/DL AND GAVE 12 UNITS OF REGULAR INSULIN Addendum: 03/13/17 at 1655 by JAYLA HARDEN RN WRONG BLOOD SUGAR LEVEL IS 287 MG/DL
[2017-03-13 20:00] VITALS: BP 115/59
--- NOTE | 2017-03-13 21:07 | NUR ---
GPS/RN NOTE: ACCUCHECK 60 MG/DL, APPLE JUICE 250 ML GIVEN. WILL RECHECK BLOOD SUGAR IN AN HOUR.
[2017-03-13] MEDS: ATORVASTATIN 10 MG TABLET PO SCH (22:48)
[2017-03-13] MEDS: INSULIN DETEMIR 100 UNIT/ML CARTRIDGE SQ SCH (22:51)
--- NOTE | 2017-03-13 23:00 | NUR ---
GPS/RN NOTE: REPEAT ACCUCHECK 126 MG/DL.
[2017-03-13] MEDS: TEMAZEPAM 7.5 MG CAPSULE PO PRN (23:16)
--- NOTE | 2017-03-13 23:16 | NUR ---
GPS/RN NOTE: PATIENT STILL UP AND ABOUT, TEMAZEPAM 7.5 MG CAP PO GIVEN.
--- NOTE | 2017-03-14 07:05 | NUR ---
GPS/RN NOTE: ACCUCHECK HI, STAT GLUCOSE ORDERED.
--- NOTE | 2017-03-14 07:11 | NUR ---
GPS/RN NOTE: REPEAT ACCUCHECK STILL HI. AWAITING BLOOD DRAW FOR STAT GLUCOSE
--- NOTE | 2017-03-14 07:14 | NUR ---
GPS/RN NOTE: BLOOD DRAWN FOR STAT GLUCOSE. FOLLOW - UP RESULT
[2017-03-14] MEDS: BLOOD SUGAR DIAGNOSTIC 1 EACH STRIP IN SCH (07:16)
[2017-03-14] MEDS: INSULIN REGULAR, HUMAN 100 UNIT/ML 3 ML VIAL SQ PRN (07:22)
--- NOTE | 2017-03-14 07:23 | NUR ---
GPS/RN NOTE: 20 UNITS OF REGULAR INSULIN SC ADMINISTERED. WILL NOTIFY
--- NOTE | 2017-03-14 07:28 | NUR ---
GPS/RN NOTE: PAGED DR. STANLEY, RE: ACCUCHECK = HI.
--- NOTE | 2017-03-14 07:39 | NUR ---
GPS/RN NOTE: PAGED AND SPOKE TO DR. SPARROW, ACCUCHECK RESULT AND SAT GLUCOSE. ORDERED STAT BMP.
[2017-03-14 08:00] VITALS: BP 100/68
--- NOTE | 2017-03-14 08:00 | NUR ---
RN-CO- PAGED KOJO SPARROW NP FOR K LEVEL 6.8 AWAITING TO CALL BACK.
[2017-03-14 08:09] LABS: CALCIUM, SERUM 8.6 mg/dL (8.5-10.1); CREATININE 1.3 mg/dL (0.6-1.3)
[2017-03-14 08:16] LABS: POTASSIUM 6.7 mmol/L (3.5-5.1)
--- NOTE | 2017-03-14 08:23 | NUR ---
RN-CO: PAGED KOJO SPARROW YARN SKEINS EXAMINER AGAIN, AWAITING TO CALL BACK. RE: K LEVEL 6.8
--- NOTE | 2017-03-14 08:40 | NUR ---
ms rn rechecked blood sugar - 505, called dr. jam carroll/ order for 12 units regular insulin ivp, but patient refused to have heplock insertion, on liter bolus ordered by tacho was note given.
[2017-03-14] MEDS ORDERED: IV NS 0.9% 1,000 ML BAG IV ONE (09:00)
--- NOTE | 2017-03-14 09:10 | NUR ---
RN-CO: KOJO ALLEN SEEN AND EXAMINED PATIENT WITH ORDER OF BOLUS NORMAL SALINE X1 AND DISCHARGE PATIENT TO MEDICAL FLOOR FOR FURTHER EVALUATION. DR DELACRUZ MADE AWARE AND HE ORDERED TO DISCONTINUE HOLD AND DISCHARGE PATIENT TO MEDICAL FLOOR. NO FAMILY TO NOTIFIED.
[2017-03-14] MEDS: MULTIVIT, IRON, MIN NO. 8, FA 1 TAB PO SCH (10:30)
[2017-03-14] MEDS: DIVALPROEX SODIUM 125 MG CAP.SPRINK PO SCH (10:30)
[2017-03-14] MEDS: FAMOTIDINE (20 MG) 20 MG TABLET PO SCH (10:30)
[2017-03-14] MEDS: SULFAMETH/TRIMETH 800/160 MG 1 UDTAB TABLET PO SCH (10:30)
[2017-03-14] MEDS: NICOTINE PATCH (21MG) 21 MG PATCH.TD24 TD SCH (10:30)
[2017-03-14] MEDS: OLANZAPINE 5 MG/TAB.RAPDIS PO SCH (10:31)
[2017-03-14] MEDS: FINASTERIDE (5 MG) 5 MG TABLET PO SCH (10:31)
[2017-03-14] MEDS: CHOLECALCIFEROL 1,000 UNIT TABLET (VIT D3) PO SCH (10:31)
[2017-03-14] MEDS: BENZTROPINE MESYLATE (1 MG) 1 MG TABLET PO SCH (10:32)
[2017-03-14 10:35] VITALS: BP 135/65
[2017-03-14] MEDS: METOPROLOL TARTRATE 25 MG TABLET PO SCH (10:35)
--- NOTE | 2017-03-14 11:27 | NUR ---
RN-CO: PATIENT REFUSED HEP LOCK INSERTION. ENCOURAGED 3X BUT BECAME IRRITATED AND STILL REFUSED. WE WILL REPORT TO RN IN MEDICAL FLOOR. 3W CHARGE NURSE GAVE A ROOM 324A. PARI COLLAZO GAVE A REPORT RECEIVING RN AT MED SUR[facility].
[2017-03-14] MEDS ORDERED: IV NS 0.9% 1,000 ML IV PRN (11:30)
--- NOTE | 2017-03-14 11:30 | NUR ---
[facility] report given to temo, all needs attended.
[2017-03-14] MEDS ORDERED: MAGN400O6 PO (12:17)
[2017-03-14] MEDS ORDERED: TEMA7.5C12 PO (12:17)
[2017-03-14] MEDS ORDERED: OLAN7.5T3 PO (12:17)
[2017-03-14] MEDS ORDERED: OLAN5TAB3 PO (12:17)
[2017-03-14] MEDS ORDERED: INSU100I19 SQ (12:17)
[2017-03-14] MEDS ORDERED: MAG30ORA PO (12:17)
[2017-03-14] MEDS ORDERED: INSU100V3 SQ (12:17)
[2017-03-14] MEDS ORDERED: LORA0.5T PO (12:17)
[2017-03-14] MEDS ORDERED: SULF1TAB48 PO (12:17)
[2017-03-14] MEDS ORDERED: BLOO-668 IN (12:17)
[2017-03-14] MEDS ORDERED: DIVA500T7 PO (12:17)
[2017-03-14] MEDS ORDERED: DIVA125C PO (12:17)
[2017-03-14] MEDS ORDERED: MULT-659 PO (12:17)
[2017-03-14] MEDS ORDERED: ACET-868 PO (12:17)
[2017-03-14] MEDS ORDERED: NICO1PAT10 TD (12:17)
[2017-03-14 12:31] LABS: CALCIUM, SERUM 9.4 mg/dL (8.5-10.1); CREATININE 1.2 mg/dL (0.6-1.3); POTASSIUM 4.8 mmol/L (3.5-5.1)
== END 2017-03-14 11:34 | disposition short-term general hospital (02) | DRG 885 ==
LOC: ER 22:24 → GPS 03-01 03:30
PROVIDERS: ADMIT Psychiatry & Neurology Psychiatry; ATTEND Psychiatry & Neurology Psychiatry
DX: F20.0 Paranoid schizophrenia (principal); E11.65 Type 2 diabetes mellitus with hyperglycemia; E11.649 Type 2 diabetes mellitus with hypoglycemia without coma; E87.2 Acidosis; F29 Unspecified psychosis not due to a substance or known physiological condition; Z79.4 Long term (current) use of insulin; Z79.899 Other long term (current) drug therapy; K21.9 Gastro-esophageal reflux disease without esophagitis; E78.5 Hyperlipidemia, unspecified; Z73.6 Limitation of activities due to disability; I10 Essential (primary) hypertension
CPT/HCPCS: 36415; 71010-TC; 80048-TC; 80053-TC; 80061-TC; 80076-TC; 80164-TC; 81000-TC; 82247-TC; 82248-TC; 82746; 82945-TC; 82947-TC; 82962-TC; 83540-TC; 83605-TC; 83735-TC; 84443-TC; 85025-TC; 86706; 86803; 87081-TC; 87086-TC; G0480; J1815; J7030

== ENCOUNTER 2017-03-14 12:00 | Inpatient (IN) | payer MEDICARE, OTHER ==
[~2017-03-14] VITALS: Ht 172.7 cm; Wt 61.7 kg
[2017-03-14 12:00] VITALS: BP 113/58
[~2017-03-14 12:00] MED LIST: ACET-2030 PO; ATOR10TA PO; BENZ0.5T3 PO; CHOL100044 PO; CHOL1CRY2 PO; CLON0.5T4 PO; DIVA500T2 PO; FAMO20TA8 PO; FINA5TAB11 PO; INSU100I14 SQ; INSU3INS6 SUBCUT; METF10002 PO; METO25TA6 PO; MULT-1119 PO; MULT1CAP34 PO; OLAN5TAB3 PO; OMEG1CAP55 PO; TROS20TA3 PO
--- NOTE | 2017-03-14 12:00 | NUR ---
m/s fish straightener: admission admitted this 62 yr old male pt from geropsych unit via w/c. awake, a/ox2-3. pt able to ambulate with supervision. no c/o pain or any discomfort. oriented to room and surroundings. pt refused skin assessment; pt wearing own clothes upon arrival to unit. instructed to call for assistance. will continue to monitor.
--- NOTE | 2017-03-14 12:05 | NUR ---
m/s coater operator: notes bs [id number], pt refused coverage. instructed to call for assistance. will continue to monitor.
--- NOTE | 2017-03-14 12:15 | NUR ---
m/s student admissions clerk: notes dr. hsu notified re: admission. md asked if he was given bolus in geropsych, informed md that pt refused per report, pt has no iv line. md will review chart as stated. will continue to monitor.
[2017-03-14] MEDS ORDERED: MULT-659 PO (12:17)
[2017-03-14] MEDS ORDERED: DIVA500T7 PO (12:17)
[2017-03-14] MEDS ORDERED: OLAN7.5T3 PO (12:17)
[2017-03-14] MEDS ORDERED: LORA0.5T PO (12:17)
[2017-03-14] MEDS ORDERED: NICO1PAT10 TD (12:17)
[2017-03-14] MEDS ORDERED: INSU100V3 SQ (12:17)
[2017-03-14] MEDS ORDERED: MAG30ORA PO (12:17)
[2017-03-14] MEDS ORDERED: MAGN400O6 PO (12:17)
[2017-03-14] MEDS ORDERED: DIVA125C PO (12:17)
[2017-03-14] MEDS ORDERED: BLOO-668 IN (12:17)
[2017-03-14] MEDS ORDERED: INSU100I19 SQ (12:17)
[2017-03-14] MEDS ORDERED: OLAN5TAB3 PO (12:17)
[2017-03-14] MEDS ORDERED: ACET-868 PO (12:17)
[2017-03-14] MEDS ORDERED: TEMA7.5C12 PO (12:17)
[2017-03-14] MEDS ORDERED: SULF1TAB48 PO (12:17)
[2017-03-14] MEDS ORDERED: MAGNESIUM HYDROXIDE 30 ML UDC PO PRN ×2 (12:30)
[2017-03-14] MEDS ORDERED: MAG HYDROX/AL HYDROX/SIMETH 30 ML UDC PO PRN ×2 (12:30)
[2017-03-14] MEDS ORDERED: LORAZEPAM 0.5 MG TABLET PO PRN (12:30)
[2017-03-14] MEDS ORDERED: Z GUARD REMEDY 2 OZ OINT TP PRN (12:30)
[2017-03-14] MEDS ORDERED: ONDANSETRON HCL/PF 4 MG/2 ML VIAL IVP PRN (12:30)
[2017-03-14] MEDS ORDERED: ZOLPIDEM TARTRATE 5 MG TABLET PO PRN (12:30)
[2017-03-14] MEDS ORDERED: DEXTROSE 50%-WATER 50 ML DISP.SYRIN IV PRN (12:30)
[2017-03-14] MEDS ORDERED: ACETAMINOPHEN 325 MG TABLET PO PRN ×2 (12:30)
[2017-03-14] MEDS ORDERED: TEMAZEPAM 7.5 MG CAPSULE PO PRN (12:30)
--- NOTE | 2017-03-14 12:30 | NUR ---
m/s doorkeeper: notes pt refused mrsa surveillance when offered. also pt refused to wear gown and refusing body check assessment. pt wearing his own clothes.
--- NOTE | 2017-03-14 13:03 | NUR ---
m/s truck bracer: notes lab called re: lactic acid=2.8. dr. hsu notified and aware with no new order at this time, but pt has admitting orders from . will continue to monitor.
[2017-03-14] MEDS: IV NS 0.9% 1,000 ML IV PRN (13:35)
[2017-03-14] MEDS: OLANZAPINE 5 MG TABLET PO SCH (13:39)
--- NOTE | 2017-03-14 15:30 | NUR ---
m/s panel cutter: md visit seen and examined by dr. hsu at this time.
[2017-03-14 16:00] VITALS: BP 122/66
--- NOTE | 2017-03-14 17:00 | NUR ---
m/s neon sign servicer: notes bs check 513, repeated wf=340. 15 units of regular insulin sq given as ordered. pt asymptomatic. dr. hsu made aware with no additional insulin order at this time, but wants staff to check at 1900. will continue to monitor.
[2017-03-14] MEDS: DIVALPROEX SODIUM 125 MG CAP.SPRINK PO SCH (17:03)
[2017-03-14] MEDS: FAMOTIDINE (20 MG) 20 MG TABLET PO SCH (17:03)
[2017-03-14] MEDS: METOPROLOL TARTRATE 25 MG TABLET PO SCH (17:03)
[2017-03-14] MEDS: BENZTROPINE MESYLATE (1 MG) 1 MG TABLET PO SCH (17:03)
[2017-03-14] MEDS: BLOOD SUGAR DIAGNOSTIC 1 EACH STRIP VI SCH ×2 (17:04→21:45)
[2017-03-14] MEDS: INSULIN REGULAR, HUMAN 100 UNIT/ML 3 ML VIAL SQ PRN (17:09)
--- NOTE | 2017-03-14 19:02 | NUR ---
m/s machine design teacher: notes re check wm=264, pt remains asymptomatic. endorsed to cj (rn) for continuity of care.
--- NOTE | 2017-03-14 19:30 | NUR ---
RN NOTES PATIENT IS IN BED ALERT AND ORIENTED X3. VS STABLE. NO C/O PAIN AT THIS TIME. NO SOB. NO RESPIRATORY DISTRESS NOTED. IV ACCESS ON RIGHT WRIST PATENT AND INTACT. INFUSING NS 75 ML/HR. NO REDNESS OR INFILTRATION NOTED. BED IN LOW POSITION. SIDE RAILS X2. CALL LIGHT WITHIN EASY REACH. CONTINUE TO MONITOR.
[2017-03-14 20:00] VITALS: BP 116/61
[2017-03-14] MEDS ORDERED: ENOXAPARIN SODIUM 40 MG/0.4 ML DISP.SYRIN SQ SCH (21:00)
[2017-03-14] MEDS: DIVALPROEX SODIUM 500 MG TABLET.DR PO SCH (21:03)
[2017-03-14] MEDS: ENOXAPARIN SODIUM 40 MG/0.4 ML DISP.SYRIN SQ SCH (21:03)
[2017-03-14] MEDS: OLANZAPINE 2.5 MG TABLET PO SCH (21:39)
[2017-03-14] MEDS: ATORVASTATIN 10 MG TABLET PO SCH (21:39)
[2017-03-14] MEDS: *INSULIN REGULAR(HUMULIN R)HUM 100 UNIT/ML VIAL SQ PRN (21:48)
[2017-03-14] MEDS: INSULIN DETEMIR 100 UNIT/ML CARTRIDGE SQ SCH (21:56)
[2017-03-15] MEDS: IV NS 0.9% 1,000 ML IV PRN (02:49)
[2017-03-15 06:32] LABS: BASOPHILS # (AUTO) 0.1 /CMM (0.0-0.2); BASOPHILS % (AUTO) 0.8 % (0.0-2.0); HEMATOCRIT 37 % (39-51); HEMOGLOBIN 12.4 g/dL (13.5-17.5); LYMPHOCYTES # (AUTO) 2.2 /CMM (0.8-4.8); LYMPHOCYTES % (AUTO) 31.7 % (20.0-44.0); MEAN CORPUSCULAR HEMOGLOBIN 31 PG (26.0-33.0); MEAN CORPUSCULAR HGB CONC 34 g/dl (31.0-36.0); MEAN CORPUSCULAR VOLUME 91 fL (80-96); MONOCYTES # (AUTO) 0.6 /CMM (0.1-1.30); MONOCYTES % (AUTO) 8.7 % (2.0-12.0); NEUTROPHILS # (AUTO) 4.1 /CMM (1.8-8.9); NEUTROPHILS % (AUTO) 58.8 % (43.0-81.0); PLATELET COUNT (AUTO) 220 /CMM (150-450); RED BLOOD CELL COUNT(AUTO) 4.01 MIL/uL (4.5-6.0)
[2017-03-15 06:59] LABS: CALCIUM, SERUM 8.5 mg/dL (8.5-10.1); MAGNESIUM 1.9 mg/dL (1.8-2.4); PHOSPHORUS 4.6 mg/dL (2.5-4.9); POTASSIUM 4.2 mmol/L (3.5-5.1)
--- NOTE | 2017-03-15 07:10 | NUR ---
RN NOTES BS 35. ORANGE JUICE GIVEN. RECHECKED IN 10 MIN. BS 69. MD AWARE.
[2017-03-15] MEDS: BLOOD SUGAR DIAGNOSTIC 1 EACH STRIP VI SCH ×4 (07:14→22:23)
[2017-03-15] MEDS: *INSULIN REGULAR(HUMULIN R)HUM 100 UNIT/ML VIAL SQ PRN ×2 (07:15→22:18)
--- NOTE | 2017-03-15 07:24 | NUR ---
RN NOTES PATIENT IS IN BED ALERT AND ORIENTED X3. NO C/O PAIN AT THIS TIME. NO SOB. NO RESPIRATORY DISTRESS NOTED. IV ACCESS ON RIGHT WRIST PATENT AND INTACT. INFUSING NS 75 ML/HR. NO REDNESS OR INFILTRATION NOTED. ALL MEDICATIONS GIVEN PER MD ORDER. BS 69. BED IN LOW POSITION. SIDE RAILS X2. CALL LIGHT WITHIN EASY REACH. WILL ENDORSE TO RN DAY SHIFT FOR CONTINUITY OF CARE.
[2017-03-15 08:00] VITALS: BP 114/74
--- NOTE | 2017-03-15 08:00 | NUR ---
MS RN NOTES PATIENT IN BED RESTING NO SOB OR ACUTE DISTRESS NOTED. PATIENT ALERT, ORIENTED EATING BREAKFAST. NOTED WITH LOW BS IN THE AM RECHECKED. IV ON RIGHT WRIST INTACT PATENT, WILL CONTINUE TO MONITOR PATIENT CLOSELY.
[2017-03-15] MEDS: NICOTINE PATCH (14MG) 14 MG PATCH.TD24 TD SCH (08:41)
[2017-03-15] MEDS: CHOLECALCIFEROL 1,000 UNIT TABLET (VIT D3) PO SCH (08:41)
[2017-03-15] MEDS: SULFAMETH/TRIMETH 800/160 MG 1 UDTAB TABLET PO SCH ×2 (08:41→22:02)
[2017-03-15] MEDS: BENZTROPINE MESYLATE (1 MG) 1 MG TABLET PO SCH ×2 (08:41→16:08)
[2017-03-15] MEDS: OLANZAPINE 5 MG TABLET PO SCH ×2 (08:42→12:16)
[2017-03-15] MEDS: FAMOTIDINE (20 MG) 20 MG TABLET PO SCH ×2 (08:42→16:08)
[2017-03-15] MEDS: MULTIVITAMINS,THERAGRAN 1 UDTAB TABLET PO SCH (08:42)
[2017-03-15] MEDS: METOPROLOL TARTRATE 25 MG TABLET PO SCH ×2 (08:42→16:10)
[2017-03-15] MEDS: FINASTERIDE (5 MG) 5 MG TABLET PO SCH (08:42)
[2017-03-15] MEDS: DIVALPROEX SODIUM 500 MG TABLET.DR PO SCH ×2 (08:46→22:21)
--- NOTE | 2017-03-15 11:00 | NUR ---
MS RN NOTES PATIENT SEEN AND EVALUATED BY DR. STANLEY ORDERS NOTED AND CARRIED OUT.
[2017-03-15] MEDS: INSULIN REGULAR, HUMAN 100 UNIT/ML 3 ML VIAL SQ PRN ×2 (12:18→16:28)
[2017-03-15] MEDS: DIVALPROEX SODIUM 125 MG CAP.SPRINK PO SCH (16:08)
--- NOTE | 2017-03-15 18:43 | NUR ---
MS RN NOTES PATIENT IN BED RESTING NO SOB OR ACUTE DISTRESS NOTED. ALL DUE MEDICATIONS ADMINISTERED. ALL NEEDS MET PATIENT WITH PERIPHERAL IV ON RIGHT WRIST INTACT PATENT. WILL ENDORSE CARE TO PM SHIFT.
--- NOTE | 2017-03-15 19:30 | NUR ---
RN NOTES PATIENT IS IN BED ALERT AND ORIENTED X3. VS STABLE. NO C/O PAIN AT THIS TIME. NO SOB. RESPIRATIONS EVEN AND UNLABORED. NO RESPIRATORY DISTRESS NOTED. IV ACCESS ON RIGHT WRIST PATENT AND INTACT. BED IN LOW POSITION. SIDE RAILS X2. CALL LIGHT WITHIN EASY REACH. CONTINUE TO MONITOR.
[2017-03-15 20:00] VITALS: BP 120/56
[2017-03-15] MEDS: OLANZAPINE 2.5 MG TABLET PO SCH (22:03)
[2017-03-15] MEDS: INSULIN DETEMIR 100 UNIT/ML CARTRIDGE SQ SCH (22:18)
[2017-03-15] MEDS: ENOXAPARIN SODIUM 40 MG/0.4 ML DISP.SYRIN SQ SCH (22:19)
[2017-03-15] MEDS: ATORVASTATIN 10 MG TABLET PO SCH (22:22)
[2017-03-16] MEDS: BLOOD SUGAR DIAGNOSTIC 1 EACH STRIP VI SCH ×3 (07:00→16:35)
--- NOTE | 2017-03-16 07:15 | NUR ---
RN NOTES BS 41. ADMINISTERED DEXTROSE 50 PUSH AND PROVIDED PATIENT WITH MILK. RECHECKED BS IN 10 MIN AND PATIENT WAS NOTED WITH BS OF 194. NO SIGNS AND SYMPTOMS OF HYPOGLYCEMIA. NO INSULIN TO BE GIVEN AT THIS TIME. CONTINUE TO MONITOR.
--- NOTE | 2017-03-16 07:24 | NUR ---
RN CLOSING NOTES PATIENT IS IN BED ALERT AND ORIENTED X3. VS STABLE. NO C/O PAIN AT THIS TIME. NO SOB. RESPIRATIONS EVEN AND UNLABORED. NO RESPIRATORY DISTRESS NOTED. IV ACCESS ON RIGHT WRIST PATENT AND INTACT. BED IN LOW POSITION. SIDE RAILS X2. CALL LIGHT WITHIN EASY REACH. WILL ENDORSE TO RN DAY SHIFT FOR CONTINUITY OF CARE.
[2017-03-16 08:00] VITALS: BP 117/74
--- NOTE | 2017-03-16 08:00 | NUR ---
MS/RN NOTES RECEIVED PATIENT RESTING IN BED AWAKE AND ORIENTED X3, ABLE TO COMMUNICATE AND MAKE NEEDS KNOWN. IN NO APPARENT DISTRESS, BREATHING COMFORTABLY WITH NO S/S OF RESPIRATORY DISTRESS, ON ROOM AIR. DENIES PAIN AND/OR DISCOMFORT AT THIS TIME. IV TO RIGHT WRIST #22 H/L. SITTER AT BEDSIDE FOR SAFETY, CALL LIGHT PLACED WITHIN EASY REACH, BED LOCKED IN LOWEST POSITION WITH. WILL CONTINUE TO MONITOR.
[2017-03-16] MEDS: NICOTINE PATCH (14MG) 14 MG PATCH.TD24 TD SCH (09:57)
[2017-03-16] MEDS: FINASTERIDE (5 MG) 5 MG TABLET PO SCH (09:58)
[2017-03-16] MEDS: FAMOTIDINE (20 MG) 20 MG TABLET PO SCH ×2 (09:58→16:35)
[2017-03-16] MEDS: METOPROLOL TARTRATE 25 MG TABLET PO SCH ×2 (09:58→16:37)
[2017-03-16] MEDS: DIVALPROEX SODIUM 500 MG TABLET.DR PO SCH (09:58)
[2017-03-16] MEDS: BENZTROPINE MESYLATE (1 MG) 1 MG TABLET PO SCH ×2 (09:58→16:35)
[2017-03-16] MEDS: CHOLECALCIFEROL 1,000 UNIT TABLET (VIT D3) PO SCH (09:58)
[2017-03-16] MEDS: SULFAMETH/TRIMETH 800/160 MG 1 UDTAB TABLET PO SCH (10:20)
[2017-03-16] MEDS: OLANZAPINE 5 MG TABLET PO SCH ×2 (10:27→12:55)
--- NOTE | 2017-03-16 10:34 | NUR ---
MS/RN NOTES AM CARE PROVIDED, MORNING MEDS GIVEN, PATIENT MONITORED CLOSELY AND ACCORDINGLY.
--- NOTE | 2017-03-16 12:30 | NUR ---
MS/RN NOTES 1200 BLOOD SUGAR CHECK 374MG/DL. 15 UNITS SLIDING SCALE INSULIN ADMINISTERED PER PROTOCOL. NO S/S OF HYPO/HYPERGLYCEMIA NOTED.
[2017-03-16] MEDS: INSULIN REGULAR, HUMAN 100 UNIT/ML 3 ML VIAL SQ PRN ×2 (12:46→16:56)
[2017-03-16] MEDS: MULTIVITAMINS,THERAGRAN 1 UDTAB TABLET PO SCH (12:55)
[2017-03-16 16:00] VITALS: BP 146/76
[2017-03-16] MEDS: DIVALPROEX SODIUM 125 MG CAP.SPRINK PO SCH (16:34)
[2017-03-16 16:37] VITALS: BP 151/73
--- NOTE | 2017-03-16 17:25 | NUR ---
MS/RN D/C NOTES RECEIVED ORDER FOR DISCHARGE. ALL DISCHARGE FORMS COMPLETED, SIGNED, COPIED AND PLACED IN CHART. MEDICATION RECONCILIATION ATTACHED TO DISCHARGE FORMS, BELONGINGS RETURNED, IV REMOVED AND COVERED PROPERLY. PATIENT MEDICALLY CLEARED PER LIZETH. PATIENT ESCORTED DOWN WHERE REPORTED WAS GIVEN TO CHARGE NURSE CROW IN NURSING STATION. FOOD TRAY WAS TAKEN DOWN AND PROVIDED TO NURSE IN NURSING STATION PER NURSE REQUEST.
[2017-03-16] MEDS ORDERED: INSU100V3 SQ (18:39)
[2017-03-16] MEDS ORDERED: ENOX40DI SQ (18:39)
== END 2017-03-16 17:00 | DRG 638 ==
LOC: MED 12:00
PROVIDERS: ADMIT Internal Medicine; ATTEND Internal Medicine
DX: E11.00 Type 2 diabetes mellitus with hyperosmolarity without nonketotic hyperglycemic-hyperosmolar coma (NKHHC) (principal); E87.0 Hyperosmolality and hypernatremia; E11.65 Type 2 diabetes mellitus with hyperglycemia; E78.5 Hyperlipidemia, unspecified; F29 Unspecified psychosis not due to a substance or known physiological condition; K21.9 Gastro-esophageal reflux disease without esophagitis; Z79.4 Long term (current) use of insulin; Z79.84 Long term (current) use of oral hypoglycemic drugs; Z79.899 Other long term (current) drug therapy; F41.9 Anxiety disorder, unspecified; F32.9 Major depressive disorder, single episode, unspecified; I10 Essential (primary) hypertension; F17.200 Nicotine dependence, unspecified, uncomplicated
CPT/HCPCS: 36415; 80048-TC; 82947-TC; 82962-TC; 83735-TC; 84100-TC; 85025-TC; 87081-TC; J1650; J1815; J7030; Z7610

== ENCOUNTER 2017-03-16 17:59 | Inpatient (IN) | payer MEDICARE, OTHER ==
[~2017-03-16] VITALS: Ht 152.4 cm; Wt 60.3 kg
[~2017-03-16 17:59] MED LIST changes: -ACET-2030 PO; +ACET-868 PO; +BLOO-668 IN; -CHOL1CRY2 PO; -CLON0.5T4 PO; +DIVA125C PO; -DIVA500T2 PO; +DIVA500T7 PO; +INSU100I19 SQ; +INSU100V3 SQ; -INSU3INS6 SUBCUT; +LORA0.5T PO; +MAG30ORA PO; +MAGN400O6 PO; -MULT-1119 PO; +MULT-659 PO; -MULT1CAP34 PO; +NICO1PAT10 TD; +OLAN7.5T3 PO; +SULF1TAB48 PO; +TEMA7.5C12 PO
[2017-03-16] MEDS ORDERED: MAGNESIUM HYDROXIDE 30 ML UDC PO PRN ×2 (18:30→20:30)
[2017-03-16] MEDS ORDERED: ACETAMINOPHEN 325 MG TABLET PO PRN ×2 (18:30→20:30)
[2017-03-16] MEDS ORDERED: LORAZEPAM 0.5 MG TABLET PO PRN ×2 (18:30→20:30)
[2017-03-16] MEDS ORDERED: MAG HYDROX/AL HYDROX/SIMETH 30 ML UDC PO PRN ×2 (18:30→20:30)
[2017-03-16] MEDS ORDERED: INSU100V3 SQ (18:39)
[2017-03-16] MEDS ORDERED: ENOX40DI SQ (18:39)
[2017-03-16 20:00] VITALS: BP 110/68
--- NOTE | 2017-03-16 20:00 | NUR ---
GPS RN: ADMITTED A A 62YO MALE FROM [facility] [address] [place] [address] ON 5270 HOLD FOR GRAVE DISABILITY. PER HOLD THE PATIENT HAS BEEN AGITATED, CONFUSED, PACING AND TALKING TO SELF, UNABLE TO PROVIDE FOR SELF CARE DUE TO MENTAL HEALTH ISSUES. PATIENT WAS INITIALLY ADMITTED BY DAY SHIFT CREW. BELONGINGS AND CONTRABAND CHECK. PATIENT PRESENT ALERT AND ORIENTED X2-3. APPEARS UNKEMPT, DISHEVELED, DISORGANIZED, PACING IN THE HALLWAYS, TALKING TO SELF AT TIMES, CONFUSED. SKIN AND BODY ASSESSMENT DONE. PATIENT IS READMITTED FROM [address] [place] [address], RE-ORIENTED TO UNIT, STAFF AND CARE PLAN. REALITY ORIENTATION DONE. DR. DELACRUZ INFORMED BY DAY SHIFT CHARGE NURSE. COREY HUERTA EDITING CLERK CAME TO THE UNIT TO ASSESS PATIENT. MED RECONCILIATION DONE. PATIENT BLOOD SUGAR TAKEN- 100 MG /DL. NO ACTION NEEDED OF THIS TIME. PLACED CALL PEREZ WITHIN PATIENT'S REACH. Q15 MIN CHECKS INITIATED. SAFETY AND FALL PRECAUTIONS OBSERVED. OFFERED PATIENT SOME SNACKS AND ORAL FLUIDS TOLERATED. WILL MONITOR PATIENT. WILL ENDORSE PATIENT TO DAY SHIFT NURSE.
[2017-03-16] MEDS ORDERED: DEXTROSE 50%-WATER 50 ML DISP.SYRIN IV PRN (20:30)
[2017-03-16] MEDS ORDERED: INSULIN REGULAR, HUMAN 100 UNIT/ML 3 ML VIAL SQ PRN (20:30)
[2017-03-16] MEDS ORDERED: TEMAZEPAM 7.5 MG CAPSULE PO PRN (20:30)
[2017-03-16] MEDS ORDERED: ATORVASTATIN 10 MG TABLET ONE (21:33)
[2017-03-16] MEDS: ATORVASTATIN 10 MG TABLET PO SCH (21:41)
[2017-03-16] MEDS ORDERED: INSULIN DETEMIR 100 UNIT/ML CARTRIDGE SQ ONE (21:54)
[2017-03-16] MEDS ORDERED: BLOOD SUGAR DIAGNOSTIC 1 EACH STRIP IN SCH (22:00)
[2017-03-16] MEDS: BLOOD SUGAR DIAGNOSTIC 1 EACH STRIP IN SCH (22:15)
[2017-03-16] MEDS: INSULIN DETEMIR 100 UNIT/ML CARTRIDGE SQ SCH (22:22)
[2017-03-17 06:59] LABS: BILIRUBIN,TOTAL 0.3 mg/dL (0.2-1.0); CALCIUM, SERUM 8.9 mg/dL (8.5-10.1); POTASSIUM 4.8 mmol/L (3.5-5.1); TOTAL PROTEIN, SERUM 6.4 g/dL (6.4-8.2)
[2017-03-17 07:00] LABS: CHOLESTEROL 136 mg/dL (<200); HDL CHOLESTEROL 38 mg/dL (40-60); LDL 71 mg/dL (0-99); TRIGLYCERIDES 174 mg/dL (30-150)
--- NOTE | 2017-03-17 07:36 | NUR ---
[id number]: BLOOD SUGAR IS 274 MG/DL AND GAVE 6 UNIT OF REGULAR INSULIN. Addendum: 03/17/17 at 1107 by JAYLA HARDEN RN WRONG ENTRY TIME, THE ACTUAL TIME IS 0940
[2017-03-17] MEDS: BLOOD SUGAR DIAGNOSTIC 1 EACH STRIP IN SCH (07:43)
[2017-03-17 08:00] VITALS: BP 129/75
[2017-03-17] MEDS: NICOTINE PATCH (14MG) 14 MG PATCH.TD24 TD SCH (08:22)
[2017-03-17] MEDS: CHOLECALCIFEROL 1,000 UNIT TABLET (VIT D3) PO SCH (08:22)
[2017-03-17] MEDS: METOPROLOL TARTRATE 25 MG TABLET PO SCH ×2 (08:23→16:27)
[2017-03-17] MEDS: MULTIVITAMINS,THERAGRAN 1 UDTAB TABLET PO SCH (08:23)
[2017-03-17] MEDS: FINASTERIDE (5 MG) 5 MG TABLET PO SCH (08:23)
[2017-03-17] MEDS: FAMOTIDINE (20 MG) 20 MG TABLET PO SCH ×2 (08:23→16:22)
--- NOTE | 2017-03-17 09:00 | NUR ---
[id number]: PT REFUSED SKIN ASSESSMENT [facility] OFFERED 3X. PT BECOMES ANXIOUS, RESTLESS, IRRITABLE. PT REQUIRES DIRECTION. PT LEFT THE ROOM AND BEGAN TO PACE AROUND THE UNIT.
[2017-03-17] MEDS ORDERED: DEXTROSE 50%-WATER 50 ML DISP.SYRIN IV PRN (11:00)
[2017-03-17] MEDS ORDERED: *INSULIN REGULAR(HUMULIN R)HUM 100 UNIT/ML VIAL SQ PRN (11:00)
[2017-03-17] MEDS: INSULIN REGULAR, HUMAN 100 UNIT/ML 3 ML VIAL SQ PRN ×2 (12:03→16:51)
--- NOTE | 2017-03-17 12:03 | NUR ---
[id number]: BLOOD SUGAR IS 303 MG/DL AND GAVE 12 UNIT OF REGULAR INSULIN
[2017-03-17] MEDS: BLOOD SUGAR DIAGNOSTIC 1 EACH STRIP VI SCH ×3 (12:12→22:33)
--- NOTE | 2017-03-17 12:31 | NUR ---
ash worker faxed new inquiry to Robert from [place] [id number] [facility] [place] [address] ( ). ash worker will follow-up.
[2017-03-17] MEDS: DIVALPROEX SODIUM 500 MG TABLET.DR PO SCH ×2 (13:43→21:46)
[2017-03-17] MEDS: OLANZAPINE 5 MG TABLET PO SCH (13:44)
--- NOTE | 2017-03-17 15:48 | NUR ---
[id number]: NOTIFIED DR. PAYTON THAT INFECTION CONTROL WANTS HCV-NUCLEIC ACID AMPLIFICATION TEST AND SPOKE TO PEG JAIME WHO IS GOING TO CHANGE THE ORDER.
[2017-03-17] MEDS: BENZTROPINE MESYLATE (1 MG) 1 MG TABLET PO SCH (16:22)
[2017-03-17] MEDS: DIVALPROEX SODIUM 125 MG CAP.SPRINK PO SCH (16:22)
[2017-03-17 16:24] VITALS: BP 109/65
--- NOTE | 2017-03-17 16:51 | NUR ---
[id number]: BLOOD SUGAR IS 136 MG/DL AND GAVE 2 UNITS OF REGULAR INSULIN
[2017-03-17 20:32] VITALS: BP 131/68
[2017-03-17] MEDS: OLANZAPINE 2.5 MG TABLET PO SCH (21:46)
[2017-03-17] MEDS: ATORVASTATIN 10 MG TABLET PO SCH (21:47)
--- NOTE | 2017-03-17 22:30 | NUR ---
GPR RN NOTE: NOTIFIED TIFFANY HUERTA THAT THE BS OF THE PATIENT IS 490, SLIDING SCALE COVERAGE INSULIN AND LEVEMIR GIVEN ORDERED. PER TIFFANY HUERTA, RECHECK AFTER 4 HOURS NOTED AND CARRIED OUT. PATIENT AWAKE NO SOB, NO ACUTE DISTRESS, BREATHING EVEN AND UNLABORED, NOS/S OF PAIN AND DISCOMFORT, WILL CONTINUE TO MONITOR
[2017-03-17] MEDS: INSULIN DETEMIR 100 UNIT/ML CARTRIDGE SQ SCH (22:36)
--- NOTE | 2017-03-18 02:42 | NUR ---
GPS RN NOTE: RECHECKED BS = 90, PATIENT STABLE, WILL CONTINUE TO MONITOR [id number] FOR SAFETY
[2017-03-18] MEDS: TEMAZEPAM 7.5 MG CAPSULE PO PRN ×2 (02:45→22:04)
--- NOTE | 2017-03-18 06:31 | NUR ---
GPS RN NOTE: PATIENT REFUSED LAB DRAW, EXPLAINED THE RISK AND BENEFITS, PATIENT STILL REFUSED. WILL ENDORSE TO THE NEXT SHIFT TO CONTINUE TO FOLLOW UP
--- NOTE | 2017-03-18 07:27 | NUR ---
[id number]: BLOOD SUGAR IS 33 ML/DL AND DOES NOT REQUIRED INSULIN AT THIS TIME.
[2017-03-18 08:00] VITALS: BP 100/54
[2017-03-18] MEDS: OLANZAPINE 5 MG TABLET PO SCH ×2 (08:26→12:30)
[2017-03-18] MEDS: BLOOD SUGAR DIAGNOSTIC 1 EACH STRIP VI SCH ×4 (08:26→22:06)
[2017-03-18] MEDS: BENZTROPINE MESYLATE (1 MG) 1 MG TABLET PO SCH ×2 (08:27→17:29)
[2017-03-18] MEDS: DIVALPROEX SODIUM 500 MG TABLET.DR PO SCH ×2 (08:27→21:31)
[2017-03-18] MEDS: FINASTERIDE (5 MG) 5 MG TABLET PO SCH (08:28)
[2017-03-18] MEDS: METOPROLOL TARTRATE 25 MG TABLET PO SCH ×2 (08:28→17:32)
[2017-03-18] MEDS: FAMOTIDINE (20 MG) 20 MG TABLET PO SCH ×2 (08:28→17:30)
[2017-03-18] MEDS: MULTIVITAMINS,THERAGRAN 1 UDTAB TABLET PO SCH (08:29)
[2017-03-18] MEDS: NICOTINE PATCH (14MG) 14 MG PATCH.TD24 TD SCH (08:29)
[2017-03-18] MEDS: CHOLECALCIFEROL 1,000 UNIT TABLET (VIT D3) PO SCH (08:31)
--- NOTE | 2017-03-18 10:06 | NUR ---
[id number]: RECHECK BLOOD SUGAR IS 165 MG/DL.
[2017-03-18 11:11] LABS: BASOPHILS # (AUTO) 0.1 /CMM (0.0-0.2); BASOPHILS % (AUTO) 0.8 % (0.0-2.0); EOSINOPHILS # (AUTO) 0.1 /CMM (0.0-0.7); EOSINOPHILS % (AUTO) 0.8 % (0.0-6.0); HEMATOCRIT 40 % (39-51); HEMOGLOBIN 13.1 g/dL (13.5-17.5); LYMPHOCYTES # (AUTO) 1.6 /CMM (0.8-4.8); LYMPHOCYTES % (AUTO) 21.2 % (20.0-44.0); MEAN CORPUSCULAR HEMOGLOBIN 31 PG (26.0-33.0); MEAN CORPUSCULAR HGB CONC 33 g/dl (31.0-36.0); MEAN CORPUSCULAR VOLUME 92 fL (80-96); MONOCYTES # (AUTO) 0.6 /CMM (0.1-1.30); NEUTROPHILS # (AUTO) 5.3 /CMM (1.8-8.9); NEUTROPHILS % (AUTO) 69.2 % (43.0-81.0); PLATELET COUNT (AUTO) 233 /CMM (150-450); RDW COEFFICIENT OF VARIATION 14.2 (11.5-15.0); RED BLOOD CELL COUNT(AUTO) 4.31 MIL/uL (4.5-6.0); WHITE BLOOD COUNT (AUTO) 7.7 K/uL (4.3-11.0)
[2017-03-18 11:20] LABS: CALCIUM, SERUM 9.2 mg/dL (8.5-10.1); MAGNESIUM 1.9 mg/dL (1.8-2.4); PHOSPHORUS 4.3 mg/dL (2.5-4.9); POTASSIUM 4.6 mmol/L (3.5-5.1)
--- NOTE | 2017-03-18 11:23 | NUR ---
[id number]: DR. RUIZ SANTILLAN AWARE OF BLOOD SUGAR AT 0727 33 MG/DL AND RECHECK BLOOD SUGAR IS 165 MG/DL. NO NEW ORDERS GIVEN AT THIS TIME.
--- NOTE | 2017-03-18 12:32 | NUR ---
[id number]: NOTIFIED DR. MELCHOR PT 'S BLOOD SUGAR IS [address] MELCHOR ORDERED TO CHANGE ACCUCHECK TO AGGRESSIVE SLIDING SCALE AND GIVE 20 UNITS OF REGULAR INSULIN.
[2017-03-18] MEDS ORDERED: DEXTROSE 50%-WATER 50 ML DISP.SYRIN IV PRN ×2 (13:30→15:00)
[2017-03-18] MEDS ORDERED: BLOOD SUGAR DIAGNOSTIC 1 EACH STRIP IN SCH (13:30)
[2017-03-18] MEDS ORDERED: *INSULIN REGULAR(HUMULIN R)HUM 100 UNIT/ML VIAL SQ PRN (13:30)
[2017-03-18] MEDS ORDERED: INSULIN REGULAR, HUMAN 100 UNIT/ML 3 ML VIAL SQ PRN (13:30)
--- NOTE | 2017-03-18 15:00 | NUR ---
[id number]: DR. MELCHOR ORDERED TO CHANGE BACK TO MODERATE SLIDING SCALE
[2017-03-18 16:00] VITALS: BP 128/71
[2017-03-18] MEDS: INSULIN REGULAR, HUMAN 100 UNIT/ML 3 ML VIAL SQ PRN ×2 (17:16→22:28)
[2017-03-18] MEDS: DIVALPROEX SODIUM 125 MG CAP.SPRINK PO SCH (17:30)
[2017-03-18] MEDS: METFORMIN 500 MG TABLET PO SCH (17:30)
[2017-03-18 20:37] VITALS: BP 139/72
[2017-03-18] MEDS: OLANZAPINE 2.5 MG TABLET PO SCH (22:01)
[2017-03-18] MEDS: ATORVASTATIN 10 MG TABLET PO SCH (22:01)
[2017-03-18] MEDS: INSULIN DETEMIR 100 UNIT/ML CARTRIDGE SQ SCH (22:33)
[2017-03-19] MEDS: OLANZAPINE 5 MG TABLET PO SCH ×3 (07:54→16:36)
[2017-03-19] MEDS: BLOOD SUGAR DIAGNOSTIC 1 EACH STRIP VI SCH ×4 (07:58→21:46)
[2017-03-19 08:00] VITALS: BP 112/67
[2017-03-19] MEDS: INSULIN REGULAR, HUMAN 100 UNIT/ML 3 ML VIAL SQ PRN ×2 (08:00→12:28)
[2017-03-19] MEDS: NICOTINE PATCH (14MG) 14 MG PATCH.TD24 TD SCH (08:24)
[2017-03-19] MEDS: FINASTERIDE (5 MG) 5 MG TABLET PO SCH (08:25)
[2017-03-19] MEDS: METOPROLOL TARTRATE 25 MG TABLET PO SCH ×2 (08:25→16:34)
[2017-03-19] MEDS: BENZTROPINE MESYLATE (1 MG) 1 MG TABLET PO SCH ×2 (08:25→16:34)
[2017-03-19] MEDS: FAMOTIDINE (20 MG) 20 MG TABLET PO SCH ×2 (08:25→16:34)
[2017-03-19] MEDS: DIVALPROEX SODIUM 500 MG TABLET.DR PO SCH ×2 (08:25→21:07)
[2017-03-19] MEDS: CHOLECALCIFEROL 1,000 UNIT TABLET (VIT D3) PO SCH (08:25)
[2017-03-19] MEDS: METFORMIN 500 MG TABLET PO SCH ×2 (08:25→16:33)
[2017-03-19] MEDS: MULTIVITAMINS,THERAGRAN 1 UDTAB TABLET PO SCH (08:36)
[2017-03-19 16:18] VITALS: BP 123/71
[2017-03-19] MEDS: DIVALPROEX SODIUM 125 MG CAP.SPRINK PO SCH (16:33)
--- NOTE | 2017-03-19 17:49 | NUR ---
GPS RN NOTES PATIENT NOTED WITH LOW B/S OF 46MG/DL AT 1721H, PT WITH NO S/S OF HYPOGLYCEMIA NOTED, PATIENT REMAINS ALERT AND ORIENTED X3, SAME VERBALLY RESPONSIVE WITH NO C/O PAIN OR ANY SIGNS OF DISTRESS OR WEAKNESS. CHARGE NURSE MADE AWARE WITH ORDER TO GIVE ORANGE JUICE. RECHECKED B/S AT 1736 AND WENT-UP TO 67MG/DL. PT THEN GAVE HIS DINNER. RECHECKED BLOOD SUGAR AGAIN AT 1747 AND B/S WENT-UP TO 116MG/DL. CHARGE NURSE MADE AWARE. WILL CONTINUE TO MONITOR.
[2017-03-19 19:57] VITALS: BP 110/64
[2017-03-19] MEDS: ATORVASTATIN 10 MG TABLET PO SCH (21:07)
[2017-03-19] MEDS: INSULIN DETEMIR 100 UNIT/ML CARTRIDGE SQ SCH (21:50)
[2017-03-19] MEDS: *INSULIN REGULAR(HUMULIN R)HUM 100 UNIT/ML VIAL SQ PRN (21:53)
--- NOTE | 2017-03-20 07:30 | NUR ---
GPS/RN BS 106, NO COVERAGE. WILL CONTINUE TO MONITOR.
[2017-03-20 08:00] VITALS: BP 101/62
[2017-03-20] MEDS: MULTIVITAMINS,THERAGRAN 1 UDTAB TABLET PO SCH (08:08)
[2017-03-20] MEDS: METFORMIN 500 MG TABLET PO SCH ×2 (08:08→16:35)
[2017-03-20] MEDS: NICOTINE PATCH (14MG) 14 MG PATCH.TD24 TD SCH (08:08)
[2017-03-20] MEDS: METOPROLOL TARTRATE 25 MG TABLET PO SCH ×2 (08:09→16:35)
[2017-03-20] MEDS: CHOLECALCIFEROL 1,000 UNIT TABLET (VIT D3) PO SCH (08:09)
[2017-03-20] MEDS: FINASTERIDE (5 MG) 5 MG TABLET PO SCH (08:09)
[2017-03-20] MEDS: OLANZAPINE 5 MG TABLET PO SCH ×2 (08:09→16:35)
[2017-03-20] MEDS: DIVALPROEX SODIUM 500 MG TABLET.DR PO SCH ×2 (08:09→20:34)
[2017-03-20] MEDS: FAMOTIDINE (20 MG) 20 MG TABLET PO SCH ×2 (08:09→16:34)
[2017-03-20] MEDS: BENZTROPINE MESYLATE (1 MG) 1 MG TABLET PO SCH ×2 (08:09→16:35)
[2017-03-20] MEDS: BLOOD SUGAR DIAGNOSTIC 1 EACH STRIP VI SCH ×4 (08:34→22:52)
--- NOTE | 2017-03-20 12:00 | NUR ---
GPS/RN BS 387, ADMINISTERED 15 UNITS REGULAR INSULIN.WILL CONTINUE TO MONITOR.
[2017-03-20] MEDS: INSULIN REGULAR, HUMAN 100 UNIT/ML 3 ML VIAL SQ PRN (12:32)
[2017-03-20] MEDS: DIVALPROEX SODIUM 125 MG CAP.SPRINK PO SCH (16:36)
[2017-03-20 16:38] VITALS: BP 110/64
--- NOTE | 2017-03-20 16:53 | NUR ---
GPS/RN BS 189, HELD INSULIN COVERAGE PER MD ORDER ( HOLD INSULIN FOR BS < 200), WILL CONTINUE TO MONITOR.
[2017-03-20 20:00] VITALS: BP 123/71
--- NOTE | 2017-03-20 20:00 | NUR ---
GPS RN NOTES RECEIVED PTS ON BED AWAKE ALERT AND RESPONSIVE , ABLE TO MAKE NEEDS KNOWN . V/S STABLE AFEBRILE . NO SOB NO DISTRESS NOTED , NO COMPLAIN OF PAIN,PTS IS CALM AND COOPERATIVE AT THIS TIME , ALL NEEDS ATTENDED TOO, ALL DUE MEDS GIVEN ORDERED , NO SIGNIFICANT CHANGE NOTED . KEPT PTS CLEAN DRY AND COMFORTABLE, WILL CONTINUE TO MONITOR PTS.
[2017-03-20] MEDS: ATORVASTATIN 10 MG TABLET PO SCH (21:30)
[2017-03-20] MEDS: INSULIN DETEMIR 100 UNIT/ML CARTRIDGE SQ SCH (22:49)
[2017-03-20] MEDS: *INSULIN REGULAR(HUMULIN R)HUM 100 UNIT/ML VIAL SQ PRN (22:52)
--- NOTE | 2017-03-21 00:59 | NUR ---
GPS RN NOTES BLOOD SUGAR FOR 10 PM IS 466MG/DL = LEVIMER 10 UNITS AND REGULAR INSULIN GIVEN PER SLIDING SCALE . SPOKE TO MD WITH ORDER FOR GLUCOSE RANDOM , PTS REFUSED TO DO LAB WORKS EXPLAIN R/B STILL PTS REFUSED . WILL CONTINUE TO MONITOR PTS WILL CHECK BLOOD SUGAR AGAIN IN AM.
--- NOTE | 2017-03-21 01:05 | NUR ---
GPS RN NOTES PTS HAD SHOWER , AND BACK TO BED TO SLEEP , KEPT PTS CLEAN DRY AND COMFORTABLE.
[2017-03-21 08:03] VITALS: BP 115/63
[2017-03-21] MEDS: BLOOD SUGAR DIAGNOSTIC 1 EACH STRIP VI SCH ×4 (08:15→21:20)
[2017-03-21] MEDS: MULTIVITAMINS,THERAGRAN 1 UDTAB TABLET PO SCH (08:16)
[2017-03-21] MEDS: FINASTERIDE (5 MG) 5 MG TABLET PO SCH (08:17)
[2017-03-21] MEDS: METOPROLOL TARTRATE 25 MG TABLET PO SCH ×2 (08:17→16:48)
[2017-03-21] MEDS: FAMOTIDINE (20 MG) 20 MG TABLET PO SCH ×2 (08:17→16:59)
[2017-03-21] MEDS: CHOLECALCIFEROL 1,000 UNIT TABLET (VIT D3) PO SCH (08:17)
[2017-03-21] MEDS: BENZTROPINE MESYLATE (1 MG) 1 MG TABLET PO SCH ×2 (08:17→16:49)
[2017-03-21] MEDS: DIVALPROEX SODIUM 500 MG TABLET.DR PO SCH ×2 (08:17→21:19)
[2017-03-21] MEDS: METFORMIN 500 MG TABLET PO SCH ×2 (08:17→16:49)
[2017-03-21] MEDS: OLANZAPINE 5 MG TABLET PO SCH ×2 (08:18→16:48)
[2017-03-21] MEDS: NICOTINE PATCH (14MG) 14 MG PATCH.TD24 TD SCH (08:18)
[2017-03-21] MEDS: INSULIN REGULAR, HUMAN 100 UNIT/ML 3 ML VIAL SQ PRN ×2 (12:16→17:47)
[2017-03-21 16:13] VITALS: BP 104/67
[2017-03-21] MEDS: DIVALPROEX SODIUM 125 MG CAP.SPRINK PO SCH (17:00)
[2017-03-21 20:00] VITALS: BP 105/64
[2017-03-21] MEDS: ATORVASTATIN 10 MG TABLET PO SCH (21:20)
[2017-03-22 04:00] VITALS: BP 110/68
[2017-03-22] MEDS: *INSULIN REGULAR(HUMULIN R)HUM 100 UNIT/ML VIAL SQ PRN ×2 (05:32→21:58)
--- NOTE | 2017-03-22 05:36 | NUR ---
GPS RN NOTE: AT 0400 PT. BLOOD SUGAR 494 MG/DL , NOTIFIED CHARGE NURSE ,PAGED SAND SCREENER BARBRA ARTEAGA GLUCOSE ORDERD , RANDOM GLUCOSE RESULT WAS 477, SLIDING SCALE COVERAGE 10 UNITS OF REGULAR INSULLIN ADMINISTRATION , PATIENT AWAKE ALERT, NO SOB, NO ACUTE DISTRESS, BREATHING EVEN AND UNLABORED,VITAL SIGNS STABLE BP 110/68, RESP 18 P,80 TEMP 97.8 O2% 98% NOS/S OF PAIN AND DISCOMFORT, PAGED, DR. WOODY FOR RANDOM GLUCOSE RESULT, AWAITING CALLED BACK, WILL CONTINUE TO MONITOR
--- NOTE | 2017-03-22 06:49 | NUR ---
RN GPS NOTES PT.RESTING HIS BED ,NO ACUTE DISTRESS NOTED, WILL ENDORSE TO NEXT SHIFT FOR CONTINUITY OF CARE .
--- NOTE | 2017-03-22 07:08 | NUR ---
RN GPS NOTES PT. BLOOD SUGAR 379 MG/DL , ENDORSE TO ON COMING SHIFT, NO ACUTE DISTRESS NOTED, WILL ENDORSE TO NEXT SHIFT FOR CONTINUITY OF CARE .
[2017-03-22 08:00] VITALS: BP 122/69
[2017-03-22] MEDS: BLOOD SUGAR DIAGNOSTIC 1 EACH STRIP VI SCH ×4 (08:07→21:48)
[2017-03-22] MEDS: INSULIN REGULAR, HUMAN 100 UNIT/ML 3 ML VIAL SQ PRN ×3 (08:14→17:35)
--- NOTE | 2017-03-22 08:15 | NUR ---
JOVANY CHRONOMETER ASSEMBLER CALLED REGARDING BGL NOW-MADE AWARE INSULIN GIVEN AT 530 AM-OK,D TO GIVE INSULIN NOW.
[2017-03-22] MEDS: FAMOTIDINE (20 MG) 20 MG TABLET PO SCH ×2 (10:07→17:38)
[2017-03-22] MEDS: METFORMIN 500 MG TABLET PO SCH (10:08)
[2017-03-22] MEDS: OLANZAPINE 5 MG TABLET PO SCH ×2 (10:08→17:38)
[2017-03-22] MEDS: DIVALPROEX SODIUM 500 MG TABLET.DR PO SCH ×2 (10:08→21:19)
[2017-03-22] MEDS: MULTIVITAMINS,THERAGRAN 1 UDTAB TABLET PO SCH (10:08)
[2017-03-22] MEDS: CHOLECALCIFEROL 1,000 UNIT TABLET (VIT D3) PO SCH (10:08)
[2017-03-22] MEDS: FINASTERIDE (5 MG) 5 MG TABLET PO SCH (10:09)
[2017-03-22] MEDS: BENZTROPINE MESYLATE (1 MG) 1 MG TABLET PO SCH ×2 (10:09→17:38)
[2017-03-22] MEDS: METOPROLOL TARTRATE 25 MG TABLET PO SCH ×2 (10:10→17:00)
[2017-03-22] MEDS: NICOTINE PATCH (14MG) 14 MG PATCH.TD24 TD SCH (10:10)
--- NOTE | 2017-03-22 10:30 | NUR ---
PT. YELLING AND RUNNING DOWN ELENA WHEN RN ASKING HIM IF HE WANTED AN ATIVAN PILL.
[2017-03-22 16:00] VITALS: BP 103/56
[2017-03-22] MEDS: METFORMIN 850 MG TABLET PO SCH (17:39)
[2017-03-22] MEDS: DIVALPROEX SODIUM 125 MG CAP.SPRINK PO SCH (17:39)
--- NOTE | 2017-03-22 18:04 | NUR ---
NO CHANGE IN STATUS.
[2017-03-22 20:00] VITALS: BP 108/60
[2017-03-22] MEDS: ATORVASTATIN 10 MG TABLET PO SCH (21:20)
--- NOTE | 2017-03-23 04:00 | NUR ---
GPS RN NOTES : OFFERED ACCU CHECK PT. REFUSED , PT. STATUS I DON'T WANT TO CHECK , ENCOURAGED X3 STILL REFUSED, EXPLAINED RISKS AND BENEFITS , WILL CONTINUITY OF CARE.
--- NOTE | 2017-03-23 07:00 | NUR ---
GPS RN NOTES PT. REFUSED AM LABS , PT. STATUS I DON'T WANTED NOW MAY BE LATER. ENDORSE TO NEXT SHIFT FOR CONTINUITY OF CARE .
--- NOTE | 2017-03-23 07:30 | NUR ---
RN NOTES PT IN BED, CALM AND COOPERATIVE. UNKEMPT. AGREED TO HAVE BS CHECK DONE. WILL CONT TO MONITOR.
[2017-03-23 08:19] VITALS: BP_SYST 120; BP_DIAS 67; BP_DIAS 86
[2017-03-23] MEDS: NICOTINE PATCH (14MG) 14 MG PATCH.TD24 TD SCH (08:37)
[2017-03-23] MEDS: METFORMIN 850 MG TABLET PO SCH ×2 (08:37→16:33)
[2017-03-23] MEDS: MULTIVITAMINS,THERAGRAN 1 UDTAB TABLET PO SCH (08:37)
[2017-03-23] MEDS: BENZTROPINE MESYLATE (1 MG) 1 MG TABLET PO SCH ×2 (08:37→16:34)
[2017-03-23] MEDS: DIVALPROEX SODIUM 500 MG TABLET.DR PO SCH ×2 (08:38→21:12)
[2017-03-23] MEDS: CHOLECALCIFEROL 1,000 UNIT TABLET (VIT D3) PO SCH (08:38)
[2017-03-23] MEDS: FAMOTIDINE (20 MG) 20 MG TABLET PO SCH ×2 (08:38→16:33)
[2017-03-23] MEDS: FINASTERIDE (5 MG) 5 MG TABLET PO SCH (08:38)
[2017-03-23] MEDS: OLANZAPINE 5 MG TABLET PO SCH ×2 (08:38→16:34)
[2017-03-23] MEDS: BLOOD SUGAR DIAGNOSTIC 1 EACH STRIP VI SCH ×4 (08:39→21:20)
[2017-03-23] MEDS: METOPROLOL TARTRATE 25 MG TABLET PO SCH ×2 (08:39→16:35)
[2017-03-23] MEDS: *INSULIN REGULAR(HUMULIN R)HUM 100 UNIT/ML VIAL SQ PRN ×2 (08:50→21:22)
--- NOTE | 2017-03-23 09:50 | NUR ---
RN NOTES ACCUCHECK DONE THIS MORNING = HI .600. GAVE 10 UNITS HUM R PER SS. NOTIFIED DINORAH AMEZQUITA. NO NEW ORDERS.
--- NOTE | 2017-03-23 10:00 | NUR ---
RN NOTES ORDERED RANDOM BS PER PROTOCOL BUT PATIENT REFUSED BLOOD DRAW.
--- NOTE | 2017-03-23 10:45 | NUR ---
RN NOTES PATIENT REFUSED TO RECHECK BLOOD SUGAR. DINORAH AMEZQUITA NP AWARE.
[2017-03-23 15:30] VITALS: BP 109/66
[2017-03-23 16:00] VITALS: BP 110/66
[2017-03-23] MEDS: DIVALPROEX SODIUM 125 MG CAP.SPRINK PO SCH (16:37)
--- NOTE | 2017-03-23 16:38 | NUR ---
RN NOTES ACCUCHECK. BS 437 MG/DL. ADMINISTERED 15 UNITS HUM R PER SS. NOTIFIED MD. WILL REQUEST RANDOM BS PER PROTOCOL.
[2017-03-23] MEDS: INSULIN REGULAR, HUMAN 100 UNIT/ML 3 ML VIAL SQ PRN (16:45)
[2017-03-23 20:45] VITALS: BP 97/64
[2017-03-23] MEDS: ATORVASTATIN 10 MG TABLET PO SCH (21:12)
[2017-03-24] MEDS: BLOOD SUGAR DIAGNOSTIC 1 EACH STRIP VI SCH ×4 (05:55→21:29)
[2017-03-24] MEDS: INSULIN REGULAR, HUMAN 100 UNIT/ML 3 ML VIAL SQ PRN (05:56)
--- NOTE | 2017-03-24 06:07 | NUR ---
RN NOTES ACCUCHECK BG = 463 MG/DL. PT. IS ASYMPTOMATIC. ADMINISTERED TO PT. 15 UNITS REGULAR INSULIN PER SLIDING SCALE. NOTIFIED MD. RANDOM GLUCOSE ORDERED PER PROTOCOL. WILL CONTINUE TO MONITOR.
--- NOTE | 2017-03-24 06:45 | NUR ---
RN NOTES AWAITING CALL BACK FROM [facility] MANAGER PEST DR. WOODY. PT. IN STABLE CONDITION, ASYMPTOMATIC, LYING IN BED RESTING COMFORTABLY. WILL CONTINUE TO MONITOR. WILL ENDORSE TO DAYSHIFT NURSE TO FOLLOW UP.
[2017-03-24 08:00] VITALS: BP 100/59
[2017-03-24] MEDS: FINASTERIDE (5 MG) 5 MG TABLET PO SCH (09:00)
[2017-03-24] MEDS: METOPROLOL TARTRATE 25 MG TABLET PO SCH ×2 (09:00→17:00)
[2017-03-24] MEDS: MULTIVITAMINS,THERAGRAN 1 UDTAB TABLET PO SCH (10:30)
[2017-03-24] MEDS: NICOTINE PATCH (14MG) 14 MG PATCH.TD24 TD SCH (10:30)
[2017-03-24] MEDS: OLANZAPINE 5 MG TABLET PO SCH ×2 (10:30→18:27)
[2017-03-24] MEDS: CHOLECALCIFEROL 1,000 UNIT TABLET (VIT D3) PO SCH (10:32)
[2017-03-24] MEDS: FAMOTIDINE (20 MG) 20 MG TABLET PO SCH ×2 (10:33→18:28)
[2017-03-24] MEDS: DIVALPROEX SODIUM 500 MG TABLET.DR PO SCH ×2 (10:34→21:35)
[2017-03-24] MEDS: METFORMIN 850 MG TABLET PO SCH ×2 (10:34→18:27)
[2017-03-24] MEDS: BENZTROPINE MESYLATE (1 MG) 1 MG TABLET PO SCH ×2 (10:35→18:27)
[2017-03-24] MEDS: *INSULIN REGULAR(HUMULIN R)HUM 100 UNIT/ML VIAL SQ PRN ×3 (12:29→21:38)
--- NOTE | 2017-03-24 15:51 | NUR ---
dairy husbandry worker spoke to Robert from [place] [id number] [facility] [place] [address] ( ) and informed him that patient will be discharged tomorrow. Robert requested updated progress notes, social service technician faxed ([phone]) updated progress notes to Robert from [facility]. dairy husbandry worker will follow-up.
[2017-03-24 16:20] VITALS: BP 108/72
[2017-03-24] MEDS: DIVALPROEX SODIUM 125 MG CAP.SPRINK PO SCH (17:00)
--- NOTE | 2017-03-24 17:08 | NUR ---
patient remains isolative and limited verbal discloseure remains responding to internal stimuli continue to monitoring for safety.
[2017-03-24 20:00] VITALS: BP 100/57
[2017-03-24 20:16] VITALS: BP 120/74
--- NOTE | 2017-03-24 21:30 | NUR ---
RN NOTES: PATIENT'S BLOOD SUGAR CHECKED AT 272 MG/DL, ADMINISTERED 6 UNITS SQ REGULAR INSULIN PER SCALE. LIGHT SNACK GIVEN. WILL CONT TO MONITOR.
[2017-03-24] MEDS: ATORVASTATIN 10 MG TABLET PO SCH (21:36)
[2017-03-25] MEDS: BLOOD SUGAR DIAGNOSTIC 1 EACH STRIP VI SCH ×2 (06:49→12:20)
--- NOTE | 2017-03-25 06:50 | NUR ---
RN NOTES: BLOOD SUGAR CHECKED AT 444 MG/DL, ORDERD FOR RANDOM BLOOD SUGAR, OPERATIONS ENGINEER AT BEDSIDE, BUT PATIENT REFUSED BLOOD DRAW.
--- NOTE | 2017-03-25 06:51 | NUR ---
RN NOTES: ADMINISTERED 15 UNITSD REGULAR INSULIN PER SCALE AND CALLED MD.
[2017-03-25] MEDS: INSULIN REGULAR, HUMAN 100 UNIT/ML 3 ML VIAL SQ PRN ×2 (06:54→12:30)
--- NOTE | 2017-03-25 07:08 | NUR ---
RN NOTES: TRIED TO CALL EPIC EXCHANGE TO INFORM TOOL MACHINIST RE BS: 444 MG/DL, CALLED TWICE, NO ONE IN EXCHANGE WAS ANSWERING. CALLED DR WOODY'S MOBILE, HOWEVER, HE WAS NOT ABLE TO PRINCIPAL AUTOMATION ENGINEER. WILL ENDORSE TO AM RN FOR LOVELY.
[2017-03-25 08:00] VITALS: BP 101/61
[2017-03-25 09:00] VITALS: BP 101/61
[2017-03-25] MEDS: NICOTINE PATCH (14MG) 14 MG PATCH.TD24 TD SCH ×2 (09:00→12:43)
[2017-03-25] MEDS: METOPROLOL TARTRATE 25 MG TABLET PO SCH (09:00)
--- NOTE | 2017-03-25 09:00 | NUR ---
RN-CO: DR DELACRUZ GAVE AN ORDER TO DISCONTINUE HOLD AND DISCHARGE PATIENT TO SNF. PATIENT REMAINS CALM AND COOPERATIVE TO CARE. NO ACUTE DISTRESS NOTED. DENIED SUICIDAL AND HOMICIDAL IDEATION. DENIED AUDITORY AND VISUAL HALLUCINATION.
[2017-03-25] MEDS: METFORMIN 850 MG TABLET PO SCH (09:19)
[2017-03-25] MEDS: FINASTERIDE (5 MG) 5 MG TABLET PO SCH (09:21)
[2017-03-25] MEDS: OLANZAPINE 5 MG TABLET PO SCH (09:21)
[2017-03-25] MEDS: FAMOTIDINE (20 MG) 20 MG TABLET PO SCH (09:22)
[2017-03-25] MEDS: DIVALPROEX SODIUM 500 MG TABLET.DR PO SCH (09:22)
[2017-03-25] MEDS: BENZTROPINE MESYLATE (1 MG) 1 MG TABLET PO SCH (09:22)
[2017-03-25] MEDS: CHOLECALCIFEROL 1,000 UNIT TABLET (VIT D3) PO SCH (09:22)
[2017-03-25] MEDS: MULTIVITAMINS,THERAGRAN 1 UDTAB TABLET PO SCH (09:22)
--- NOTE | 2017-03-25 13:06 | NUR ---
RN-CO: DR RUIZ CONNELLY MEDICALLY CLEARED PATIENT FOR DISCHARGE.
--- NOTE | 2017-03-25 13:45 | NUR ---
PT. MADE READY FOR DISCHARGE.BLOOD GLUCOSE LEVEL GOOD,NO SUICIDAL IDEATION OR HOMICIDAL IDEATION,AMBULANCE HERE,GIVEN REPORT TO DRIVERS.REPORT CALLED TO FACILITY.SPOKE WITH NURSE KARI.TAKEN TO FACILITY VIA AMB.
--- NOTE | 2017-03-25 15:22 | NUR ---
Discharge Note: Patient will be discharged to [address] [address] ( ). Via med response. Patient does not have any family to notify. Patient's mood and affect are appropriate. Patient denies suicidal and homicidal ideations. Patient will follow-up with psychiatrist Dr. Abelardo Siddiqi ([phone]) at the facility on 03/26/17 at 1:00PM in which he will discuss his substance abuse hx. For smoking cessation patient was referred for a phone meeting scheduled 03/30/17 at 9:30am ([phone]) PIN: [id number] with [facility]. Facilitated info to IDT team who are in agreement with discharge arrangement. The multidisciplinary exitcare form was done, printed, signed, and given to the patient.
== END 2017-03-25 13:30 | DRG 885 ==
LOC: GPS 17:59
PROVIDERS: ADMIT Psychiatry & Neurology Psychiatry; ATTEND Psychiatry & Neurology Psychiatry
DX: F25.0 Schizoaffective disorder, bipolar type (principal); E11.65 Type 2 diabetes mellitus with hyperglycemia; E44.1 Mild protein-calorie malnutrition; N39.0 Urinary tract infection, site not specified; K21.9 Gastro-esophageal reflux disease without esophagitis; Z79.899 Other long term (current) drug therapy; Z73.6 Limitation of activities due to disability; E78.5 Hyperlipidemia, unspecified; E03.9 Hypothyroidism, unspecified; F17.200 Nicotine dependence, unspecified, uncomplicated; R91.1 Solitary pulmonary nodule; D64.9 Anemia, unspecified; I10 Essential (primary) hypertension
CPT/HCPCS: 36415; 80048-TC; 80053-TC; 80061-TC; 82945-TC; 82962-TC; 83735-TC; 84100-TC; 85025-TC; J1815